=== PATIENT | female | born 1975 | race Caucasian/White ===

== ENCOUNTER 2021-02-22 06:29 | Inpatient (IN) ==
[2021-02-22] MEDS ORDERED: Mag Hydrox/Al Hydrox/Simeth 30 ML UDC PO PRN (10:48)
[2021-02-22] MEDS ORDERED: Ondansetron ODT 4 MG TAB.RAPDIS SL PRN (10:48)
[2021-02-22] MEDS ORDERED: Naloxone 0.4 MG/ML INJ IVP PRN (10:48)
[2021-02-22] MEDS ORDERED: Melatonin 3 MG TABLET PO PRN (10:48)
[2021-02-22] MEDS ORDERED: D5% in Water 1,000 ML IVC PRN (10:54)
[2021-02-22] MEDS ORDERED: *HR* Dextrose 50 % in Water (Vial) 50 ML VIAL IVP PRN (10:54)
[2021-02-22] MEDS ORDERED: Dextrose Gel 15 GM/37.5 ML TUBE PO PRN ×2 (10:54)
[2021-02-22] MEDS: Ipratropium 1 PUFF INHALER IH SCH ×4 (11:23→23:22)
[2021-02-22] MEDS: Furosemide 40 MG/4 ML VIAL IVP SCH (11:30)
[2021-02-22] MEDS: Insulin LISPRO 300 UNITS/3 ML VIAL SUBQ SCH ×3 (11:31→20:57)
[2021-02-22] MEDS ORDERED: Remdesivir 200 MG in 0.9 % Sodium Chloride 100 ML IVPB ONE (12:00)
[2021-02-22] MEDS ORDERED: 0.9 % Sodium Chloride 500 ML ONE (12:25)
[2021-02-22 12:28] LABS: Fibrinogen 521 mg/dL (169-393)
[2021-02-22 12:30] LABS: D-Dimer 1278 ng/mLFEU (0-500)
[2021-02-22 12:42] LABS: Lactate Dehydrogenase 641 Units/L (140-271)
[2021-02-22 12:52] LABS: C-Reactive Protein 59 mg/L (Less than 10)
[2021-02-22 13:00] LABS: Ferritin 249 ng/mL (10-120)
[2021-02-22] MEDS: tiZANidine 4 MG TABLET PO SCH ×2 (14:21→20:56)
[2021-02-22] MEDS: Acetaminophen 325 MG TABLET PO PRN (20:56)
[2021-02-23 02:36] LABS: Basophils % 0.2 %; Hemoglobin 12.4 g/dL (11.5-15.4); Immature Granulocytes % 0.8 % (0-4); Lymphocytes # 0.5 K/mcL (0.6-4.6); Mean Corpuscular Volume 83.9 fL (83.0-100.0); Mean Platelet Volume 10.4 fL (9.4-12.4); Monocytes # 0.3 K/mcL (0.0-1.3); Monocytes % 5.3 %; Neutrophils # 5.2 K/mcL (1.6-8.9); Platelet Count 314 K/mcL (140-400); Red Blood Count 4.77 M/mcL (3.82-4.97); Red Cell Distribution Width 14.4 % (11.5-14.5); Segmented Neutrophils % 85.7 %
[2021-02-23 02:58] LABS: Alanine Aminotransferase 19 Units/L (7-52); Albumin 3.3 g/dL (3.5-5.7); Albumin/Globulin Ratio 1.1 (1.1-2.2); Alkaline Phosphatase 57 Units/L (34-104); Aspartate Amino Transferase 32 Units/L (13-39); BUN/Creatinine Ratio 39 (6-26); Bilirubin,Total 0.3 mg/dL (0.3-1.0); Blood Urea Nitrogen 24 mg/dL (6-20); Calcium 7.6 mg/dL (8.6-10.3); Carbon Dioxide 25 mEq/L (23-29); Chloride 103 mEq/L (98-107); Glucose 312 mg/dL (70-105); Osmolality,Calculated 302 (280-300); Phosphorous 3.9 mg/dL (2.7-4.5); Potassium 4.2 mEq/L (3.5-5.1); Sodium 138 mEq/L (136-145); Total Protein 6.3 g/dL (6.4-8.9); eGFR For African Americans > 60 (> 60); eGFR For Non-African Americans > 60 (> 60)
[2021-02-23] MEDS: Ipratropium 1 PUFF INHALER IH SCH ×5 (04:01→20:15)
[2021-02-23] MEDS ORDERED: *HR* Enoxaparin 40 MG/0.4 ML SYRINGE SQ SCH (06:00)
[2021-02-23] MEDS: Furosemide 40 MG/4 ML VIAL IVP SCH (07:33)
[2021-02-23] MEDS: tiZANidine 4 MG TABLET PO SCH ×3 (07:33→21:09)
[2021-02-23] MEDS: amLODIPine 5 MG TABLET PO SCH (07:34)
[2021-02-23] MEDS: Aspirin Enteric Coated 81 MG Tablet PO SCH (07:34)
[2021-02-23] MEDS: Insulin LISPRO 300 UNITS/3 ML VIAL SUBQ SCH ×4 (07:35→21:03)
[2021-02-23] MEDS: Remdesivir 100 MG in 0.9 % Sodium Chloride 100 ML IVPB SCH (12:59)
[2021-02-23] MEDS ORDERED: Insulin DETEMIR 100 UNIT/ML X5UNITS SUBQ ONE (16:28)
[2021-02-23] MEDS: *HR* Enoxaparin 40 MG/0.4 ML SYRINGE SQ SCH (17:44)
[2021-02-23] MEDS ORDERED: Insulin DETEMIR 100 UNIT/ML X5UNITS SUBQ SCH (21:00)
[2021-02-23] MEDS: Insulin DETEMIR 100 UNIT/ML X5UNITS SUBQ SCH (21:09)
[2021-02-23] MEDS: Acetaminophen 325 MG TABLET PO PRN (21:22)
[2021-02-24] MEDS: Ipratropium 1 PUFF INHALER IH SCH ×7 (00:19→23:43)
[2021-02-24 04:50] LABS: Basophils % 0.1 %; Hematocrit 40.2 % (35.3-44.9); Hemoglobin 12.4 g/dL (11.5-15.4); Immature Granulocytes % 1.1 % (0-4); Lymphocytes # 0.8 K/mcL (0.6-4.6); Lymphocytes % 8.1 %; Mean Corpuscular HGB Conc 30.8 g/dL (31.6-35.5); Mean Corpuscular Hemoglobin 25.9 pg (28.0-33.3); Mean Corpuscular Volume 83.9 fL (83.0-100.0); Mean Platelet Volume 10.5 fL (9.4-12.4); Monocytes # 0.8 K/mcL (0.0-1.3); Monocytes % 7.6 %; Neutrophils # 8.2 K/mcL (1.6-8.9); Platelet Count 346 K/mcL (140-400); Red Blood Count 4.79 M/mcL (3.82-4.97); Red Cell Distribution Width 14.3 % (11.5-14.5); Segmented Neutrophils % 83.1 %
[2021-02-24 05:12] LABS: BUN/Creatinine Ratio 44 (6-26); Blood Urea Nitrogen 24 mg/dL (6-20); Calcium 8.1 mg/dL (8.6-10.3); Carbon Dioxide 27 mEq/L (23-29); Chloride 104 mEq/L (98-107); Glucose 298 mg/dL (70-105); Osmolality,Calculated 303 (280-300); Potassium 4.3 mEq/L (3.5-5.1); Sodium 139 mEq/L (136-145); eGFR For African Americans > 60 (> 60); eGFR For Non-African Americans > 60 (> 60)
[2021-02-24 05:52] LABS: White Blood Count 9.9 K/mcL (4.3-11.1)
[2021-02-24] MEDS: Benzonatate 100 MG CAPSULE PO PRN (05:56)
[2021-02-24] MEDS: *HR* Enoxaparin 40 MG/0.4 ML SYRINGE SQ SCH ×2 (05:57→16:56)
[2021-02-24 06:41] LABS: Platelet Estimate Normal (Normal)
[2021-02-24] MEDS: Furosemide 40 MG/4 ML VIAL IVP SCH (07:33)
[2021-02-24] MEDS: tiZANidine 4 MG TABLET PO SCH ×2 (07:34→20:40)
[2021-02-24] MEDS: Aspirin Enteric Coated 81 MG Tablet PO SCH (07:34)
[2021-02-24] MEDS: Insulin DETEMIR 100 UNIT/ML X5UNITS SUBQ SCH ×2 (07:34→20:40)
[2021-02-24] MEDS: amLODIPine 5 MG TABLET PO SCH (07:34)
[2021-02-24] MEDS: Insulin LISPRO 300 UNITS/3 ML VIAL SUBQ SCH ×5 (07:35→20:41)
[2021-02-24] MEDS: Remdesivir 100 MG in 0.9 % Sodium Chloride 100 ML IVPB SCH (11:13)
[2021-02-24 15:24] LABS: Albumin 3.3 g/dL (3.5-5.7); Albumin/Globulin Ratio 1.1 (1.1-2.2); Bilirubin,Direct 0.1 mg/dL (0.0-0.2); Bilirubin,Indirect 0.3 mg/dL (0.0-1.0); Bilirubin,Total 0.4 mg/dL (0.3-1.0); Globulin 2.9 g/dL (2.4-3.5); Total Protein 6.2 g/dL (6.4-8.9)
[2021-02-24] MEDS ORDERED: Insulin LISPRO 300 UNITS/3 ML VIAL SUBQ SCH (16:30)
[2021-02-25] MEDS: Ipratropium 1 PUFF INHALER IH SCH ×5 (03:52→20:48)
[2021-02-25] MEDS: *HR* Enoxaparin 40 MG/0.4 ML SYRINGE SQ SCH ×2 (06:15→17:16)
[2021-02-25] MEDS: Aspirin Enteric Coated 81 MG Tablet PO SCH (08:10)
[2021-02-25] MEDS: tiZANidine 4 MG TABLET PO SCH ×2 (08:10→20:40)
[2021-02-25] MEDS: amLODIPine 5 MG TABLET PO SCH (08:10)
[2021-02-25] MEDS: Furosemide 40 MG/4 ML VIAL IVP SCH (08:11)
[2021-02-25] MEDS: Insulin LISPRO 300 UNITS/3 ML VIAL SUBQ SCH ×8 (08:12→20:39)
[2021-02-25] MEDS: Insulin DETEMIR 100 UNIT/ML X5UNITS SUBQ SCH ×2 (08:13→20:38)
[2021-02-25 08:56] LABS: Hematocrit 42.1 % (35.3-44.9); Hemoglobin 12.7 g/dL (11.5-15.4); Mean Corpuscular HGB Conc 30.2 g/dL (31.6-35.5); Mean Corpuscular Hemoglobin 25.3 pg (28.0-33.3); Mean Platelet Volume 10.2 fL (9.4-12.4); Platelet Count 353 K/mcL (140-400); Red Blood Count 5.01 M/mcL (3.82-4.97); Red Cell Distribution Width 14.2 % (11.5-14.5); White Blood Count 12.4 K/mcL (4.3-11.1)
[2021-02-25 09:16] LABS: BUN/Creatinine Ratio 39 (6-26); Blood Urea Nitrogen 22 mg/dL (6-20); Calcium 8.3 mg/dL (8.6-10.3); Carbon Dioxide 31 mEq/L (23-29); Chloride 102 mEq/L (98-107); Glucose 209 mg/dL (70-105); Osmolality,Calculated 297 (280-300); Potassium 3.9 mEq/L (3.5-5.1); Sodium 139 mEq/L (136-145); eGFR For African Americans > 60 (> 60); eGFR For Non-African Americans > 60 (> 60)
[2021-02-25 09:18] LABS: Albumin 3.3 g/dL (3.5-5.7); Albumin/Globulin Ratio 1.1 (1.1-2.2); Bilirubin,Direct 0.1 mg/dL (0.0-0.2); Bilirubin,Indirect 0.4 mg/dL (0.0-1.0); Bilirubin,Total 0.5 mg/dL (0.3-1.0); Total Protein 6.3 g/dL (6.4-8.9)
[2021-02-25 09:35] LABS: Lymphocytes # 0.7 K/mcL (0.6-4.6); Neutrophils # 11.7 K/mcL (1.6-8.9); Platelet Estimate Increased (Normal)
[2021-02-25] MEDS ORDERED: Isovue-370 500 ML BOTTLE IVP ONE (10:14)
[2021-02-25] MEDS: Remdesivir 100 MG in 0.9 % Sodium Chloride 100 ML IVPB SCH (12:10)
[2021-02-25] MEDS ORDERED: Furosemide 20 MG/2 ML VIAL IVP ONE (15:43)
[2021-02-25] MEDS ORDERED: *HR* Heparin 5,000 UNIT/ML VIAL IVP PRN ×2 (17:19)
[2021-02-25] MEDS ORDERED: *HR* Heparin 5,000 UNIT/ML VIAL IVP ONE (17:19)
[2021-02-25] MEDS ORDERED: Heparin 25,000UNIT/250ML 1/2NS 25,000 UNIT/250 ML IV.SOLN IVC SCH (17:30)
[2021-02-25] MEDS ORDERED: *HR* Enoxaparin 150 MG/ML SYRINGE SQ SCH (18:00)
[2021-02-25 18:34] LABS: Heparin anti-factor XA UFH 0.14 IU/mL (0.30-0.70)
[2021-02-25 18:35] LABS: INR 1.2
[2021-02-25] MEDS: Acetaminophen 325 MG TABLET PO PRN (18:51)
[2021-02-25] MEDS ORDERED: *HR* Enoxaparin 100 MG/ML SYRINGE SQ ONE (19:00)
[2021-02-26] MEDS: Ipratropium 1 PUFF INHALER IH SCH ×6 (00:22→19:57)
[2021-02-26] MEDS: *HR* Enoxaparin 150 MG/ML SYRINGE SQ SCH ×2 (05:50→17:06)
[2021-02-26 06:35] LABS: Basophils % 0.2 %; Hemoglobin 12.5 g/dL (11.5-15.4); Immature Granulocytes % 1.5 % (0-4); Lymphocytes # 1.3 K/mcL (0.6-4.6); Lymphocytes % 10.4 %; Mean Corpuscular HGB Conc 31.3 g/dL (31.6-35.5); Mean Corpuscular Hemoglobin 26.2 pg (28.0-33.3); Mean Corpuscular Volume 83.9 fL (83.0-100.0); Mean Platelet Volume 10.6 fL (9.4-12.4); Monocytes # 0.8 K/mcL (0.0-1.3); Monocytes % 6.8 %; Platelet Count 299 K/mcL (140-400); Red Blood Count 4.77 M/mcL (3.82-4.97); Segmented Neutrophils % 81.1 %; White Blood Count 12.3 K/mcL (4.3-11.1)
[2021-02-26 06:58] LABS: Alanine Aminotransferase 13 Units/L (7-52); Alkaline Phosphatase 78 Units/L (34-104); Aspartate Amino Transferase 13 Units/L (13-39); BUN/Creatinine Ratio 48 (6-26); Bilirubin,Direct 0.1 mg/dL (0.0-0.2); Bilirubin,Indirect 0.4 mg/dL (0.0-1.0); Bilirubin,Total 0.5 mg/dL (0.3-1.0); Blood Urea Nitrogen 23 mg/dL (6-20); Carbon Dioxide 30 mEq/L (23-29); Chloride 101 mEq/L (98-107); Globulin 2.9 g/dL (2.4-3.5); Glucose 200 mg/dL (70-105); Osmolality,Calculated 295 (280-300); Sodium 138 mEq/L (136-145); Total Protein 5.9 g/dL (6.4-8.9); eGFR For African Americans > 60 (> 60); eGFR For Non-African Americans > 60 (> 60)
[2021-02-26] MEDS: amLODIPine 5 MG TABLET PO SCH (07:43)
[2021-02-26] MEDS: tiZANidine 4 MG TABLET PO SCH ×2 (07:43→21:44)
[2021-02-26] MEDS: Aspirin Enteric Coated 81 MG Tablet PO SCH (07:43)
[2021-02-26] MEDS: Insulin DETEMIR 100 UNIT/ML X5UNITS SUBQ SCH ×2 (07:44→21:44)
[2021-02-26] MEDS: Insulin LISPRO 300 UNITS/3 ML VIAL SUBQ SCH ×7 (07:44→21:43)
[2021-02-26] MEDS: Furosemide 40 MG/4 ML VIAL IVP SCH (07:45)
[2021-02-26 07:47] LABS: Platelet Estimate Normal (Normal)
[2021-02-26] MEDS: Acetaminophen 325 MG TABLET PO PRN (08:51)
[2021-02-26] MEDS: Remdesivir 100 MG in 0.9 % Sodium Chloride 100 ML IVPB SCH (12:25)
[2021-02-27] MEDS: Ipratropium 1 PUFF INHALER IH SCH ×7 (00:14→23:34)
[2021-02-27 05:01] LABS: Basophils % 0.3 %; Eosinophils % 0.1 %; Hematocrit 39.4 % (35.3-44.9); Hemoglobin 12.2 g/dL (11.5-15.4); Immature Granulocytes % 2.3 % (0-4); Lymphocytes # 1.4 K/mcL (0.6-4.6); Lymphocytes % 9.1 %; Mean Corpuscular Hemoglobin 25.8 pg (28.0-33.3); Mean Corpuscular Volume 83.5 fL (83.0-100.0); Mean Platelet Volume 10.5 fL (9.4-12.4); Monocytes # 0.9 K/mcL (0.0-1.3); Monocytes % 5.8 %; Neutrophils # 12.7 K/mcL (1.6-8.9); Platelet Count 314 K/mcL (140-400); Red Blood Count 4.72 M/mcL (3.82-4.97); Red Cell Distribution Width 13.8 % (11.5-14.5); Segmented Neutrophils % 82.4 %; White Blood Count 15.4 K/mcL (4.3-11.1)
[2021-02-27 05:10] LABS: BUN/Creatinine Ratio 45 (6-26); Blood Urea Nitrogen 21 mg/dL (6-20); Calcium 8.1 mg/dL (8.6-10.3); Carbon Dioxide 30 mEq/L (23-29); Chloride 100 mEq/L (98-107); Glucose 166 mg/dL (70-105); Osmolality,Calculated 289 (280-300); Potassium 4.2 mEq/L (3.5-5.1); Sodium 136 mEq/L (136-145); eGFR For African Americans > 60 (> 60); eGFR For Non-African Americans > 60 (> 60)
[2021-02-27] MEDS: *HR* Enoxaparin 150 MG/ML SYRINGE SQ SCH ×2 (05:25→18:45)
[2021-02-27] MEDS: Insulin LISPRO 300 UNITS/3 ML VIAL SUBQ SCH ×7 (07:17→19:54)
[2021-02-27] MEDS: Aspirin Enteric Coated 81 MG Tablet PO SCH (07:57)
[2021-02-27] MEDS: tiZANidine 4 MG TABLET PO SCH ×2 (07:57→20:02)
[2021-02-27] MEDS: Insulin DETEMIR 100 UNIT/ML X5UNITS SUBQ SCH ×2 (07:58→20:00)
[2021-02-27] MEDS: Furosemide 40 MG/4 ML VIAL IVP SCH (07:58)
[2021-02-27] MEDS: amLODIPine 5 MG TABLET PO SCH (07:58)
[2021-02-27] MEDS: Acetaminophen 325 MG TABLET PO PRN ×2 (09:43→20:02)
[2021-02-28] MEDS: Ipratropium 1 PUFF INHALER IH SCH ×6 (04:20→23:33)
[2021-02-28] MEDS: *HR* Enoxaparin 150 MG/ML SYRINGE SQ SCH ×2 (05:05→16:57)
[2021-02-28 06:04] LABS: Basophils % 0.3 %; Eosinophils # 0.1 K/mcL (0.0-0.6); Eosinophils % 0.6 %; Immature Granulocytes % 2.2 % (0-4); Lymphocytes # 1.3 K/mcL (0.6-4.6); Lymphocytes % 9.3 %; Mean Corpuscular HGB Conc 31.6 g/dL (31.6-35.5); Mean Corpuscular Hemoglobin 26.2 pg (28.0-33.3); Mean Platelet Volume 10.6 fL (9.4-12.4); Monocytes # 0.6 K/mcL (0.0-1.3); Monocytes % 4.5 %; Neutrophils # 11.6 K/mcL (1.6-8.9); Platelet Count 291 K/mcL (140-400); Red Blood Count 4.58 M/mcL (3.82-4.97); Red Cell Distribution Width 13.8 % (11.5-14.5); Segmented Neutrophils % 83.1 %; White Blood Count 13.9 K/mcL (4.3-11.1)
[2021-02-28 06:25] LABS: BUN/Creatinine Ratio 47 (6-26); Blood Urea Nitrogen 20 mg/dL (6-20); Carbon Dioxide 29 mEq/L (23-29); Chloride 99 mEq/L (98-107); Glucose 163 mg/dL (70-105); Osmolality,Calculated 286 (280-300); Potassium 3.7 mEq/L (3.5-5.1); Sodium 135 mEq/L (136-145); eGFR For African Americans > 60 (> 60); eGFR For Non-African Americans > 60 (> 60)
[2021-02-28] MEDS: amLODIPine 5 MG TABLET PO SCH (08:07)
[2021-02-28] MEDS: Acetaminophen 325 MG TABLET PO PRN ×3 (08:07→20:27)
[2021-02-28] MEDS: Aspirin Enteric Coated 81 MG Tablet PO SCH (08:07)
[2021-02-28] MEDS: tiZANidine 4 MG TABLET PO SCH ×2 (08:07→20:28)
[2021-02-28] MEDS: Furosemide 40 MG/4 ML VIAL IVP SCH (08:08)
[2021-02-28] MEDS: Insulin DETEMIR 100 UNIT/ML X5UNITS SUBQ SCH ×2 (08:09→20:27)
[2021-02-28] MEDS: Insulin LISPRO 300 UNITS/3 ML VIAL SUBQ SCH ×7 (08:10→20:27)
[2021-02-28] MEDS: Benzonatate 100 MG CAPSULE PO PRN ×2 (13:38→20:28)
[2021-03-01] MEDS: Ipratropium 1 PUFF INHALER IH SCH ×6 (04:01→23:03)
[2021-03-01] MEDS: *HR* Enoxaparin 150 MG/ML SYRINGE SQ SCH ×2 (05:08→17:17)
[2021-03-01 06:54] LABS: Basophils % 0.1 %; Eosinophils # 0.2 K/mcL (0.0-0.6); Eosinophils % 1.3 %; Hematocrit 39.3 % (35.3-44.9); Hemoglobin 12.2 g/dL (11.5-15.4); Immature Granulocytes % 1.7 % (0-4); Lymphocytes # 1.1 K/mcL (0.6-4.6); Lymphocytes % 7.5 %; Mean Corpuscular Hemoglobin 26.1 pg (28.0-33.3); Mean Platelet Volume 10.8 fL (9.4-12.4); Monocytes # 0.7 K/mcL (0.0-1.3); Neutrophils # 11.9 K/mcL (1.6-8.9); Platelet Count 299 K/mcL (140-400); Red Blood Count 4.68 M/mcL (3.82-4.97); Red Cell Distribution Width 13.9 % (11.5-14.5); Segmented Neutrophils % 84.4 %; White Blood Count 14.1 K/mcL (4.3-11.1)
[2021-03-01 07:12] LABS: BUN/Creatinine Ratio 36 (6-26); Blood Urea Nitrogen 16 mg/dL (6-20); Calcium 8.2 mg/dL (8.6-10.3); Carbon Dioxide 29 mEq/L (23-29); Chloride 98 mEq/L (98-107); Glucose 130 mg/dL (70-105); Osmolality,Calculated 283 (280-300); Potassium 3.7 mEq/L (3.5-5.1); Sodium 135 mEq/L (136-145); eGFR For African Americans > 60 (> 60); eGFR For Non-African Americans > 60 (> 60)
[2021-03-01] MEDS: Insulin LISPRO 300 UNITS/3 ML VIAL SUBQ SCH ×7 (08:31→21:18)
[2021-03-01] MEDS: tiZANidine 4 MG TABLET PO SCH ×2 (08:44→21:19)
[2021-03-01] MEDS: amLODIPine 5 MG TABLET PO SCH (08:44)
[2021-03-01] MEDS: Acetaminophen 325 MG TABLET PO PRN ×2 (08:44→21:19)
[2021-03-01] MEDS: Aspirin Enteric Coated 81 MG Tablet PO SCH (08:44)
[2021-03-01] MEDS: Benzonatate 100 MG CAPSULE PO PRN ×2 (08:44→21:19)
[2021-03-01] MEDS: Furosemide 40 MG/4 ML VIAL IVP SCH (08:45)
[2021-03-01] MEDS: Insulin DETEMIR 100 UNIT/ML X5UNITS SUBQ SCH ×2 (08:51→21:25)
[2021-03-02] MEDS: Ipratropium 1 PUFF INHALER IH SCH ×6 (03:45→23:04)
[2021-03-02] MEDS: *HR* Enoxaparin 150 MG/ML SYRINGE SQ SCH ×2 (04:59→17:54)
[2021-03-02 06:34] LABS: Basophils % 0.2 %; Eosinophils # 0.2 K/mcL (0.0-0.6); Eosinophils % 1.6 %; Hematocrit 38.2 % (35.3-44.9); Hemoglobin 11.9 g/dL (11.5-15.4); Immature Granulocytes % 1.8 % (0-4); Lymphocytes # 1.1 K/mcL (0.6-4.6); Lymphocytes % 7.8 %; Mean Corpuscular HGB Conc 31.2 g/dL (31.6-35.5); Mean Corpuscular Hemoglobin 26.5 pg (28.0-33.3); Mean Corpuscular Volume 85.1 fL (83.0-100.0); Mean Platelet Volume 10.8 fL (9.4-12.4); Monocytes # 0.6 K/mcL (0.0-1.3); Monocytes % 4.8 %; Neutrophils # 11.3 K/mcL (1.6-8.9); Platelet Count 265 K/mcL (140-400); Red Blood Count 4.49 M/mcL (3.82-4.97); Red Cell Distribution Width 13.8 % (11.5-14.5); Segmented Neutrophils % 83.8 %; White Blood Count 13.5 K/mcL (4.3-11.1)
[2021-03-02 06:53] LABS: BUN/Creatinine Ratio 31 (6-26); Blood Urea Nitrogen 14 mg/dL (6-20); Carbon Dioxide 30 mEq/L (23-29); Chloride 99 mEq/L (98-107); Glucose 100 mg/dL (70-105); Osmolality,Calculated 281 (280-300); Sodium 135 mEq/L (136-145); eGFR For African Americans > 60 (> 60); eGFR For Non-African Americans > 60 (> 60)
[2021-03-02] MEDS: Insulin LISPRO 300 UNITS/3 ML VIAL SUBQ SCH ×7 (07:35→21:23)
[2021-03-02] MEDS: Furosemide 40 MG/4 ML VIAL IVP SCH (07:48)
[2021-03-02] MEDS: Benzonatate 100 MG CAPSULE PO PRN (07:50)
[2021-03-02] MEDS: amLODIPine 5 MG TABLET PO SCH (07:50)
[2021-03-02] MEDS: Aspirin Enteric Coated 81 MG Tablet PO SCH (07:50)
[2021-03-02] MEDS: tiZANidine 4 MG TABLET PO SCH ×2 (07:50→21:10)
[2021-03-02] MEDS: Insulin DETEMIR 100 UNIT/ML X5UNITS SUBQ SCH ×2 (07:56→21:05)
[2021-03-02] MEDS: Acetaminophen 325 MG TABLET PO PRN (21:24)
[2021-03-03 02:02] LABS: Basophils % 0.2 %; Eosinophils # 0.1 K/mcL (0.0-0.6); Eosinophils % 0.7 %; Hematocrit 35.7 % (35.3-44.9); Hemoglobin 11.2 g/dL (11.5-15.4); Immature Granulocytes % 2.1 % (0-4); Lymphocytes # 1.1 K/mcL (0.6-4.6); Lymphocytes % 6.7 %; Mean Corpuscular HGB Conc 31.4 g/dL (31.6-35.5); Mean Corpuscular Hemoglobin 25.9 pg (28.0-33.3); Mean Corpuscular Volume 82.4 fL (83.0-100.0); Mean Platelet Volume 11.1 fL (9.4-12.4); Monocytes # 0.8 K/mcL (0.0-1.3); Monocytes % 4.9 %; Neutrophils # 13.7 K/mcL (1.6-8.9); Platelet Count 303 K/mcL (140-400); Red Blood Count 4.33 M/mcL (3.82-4.97); Red Cell Distribution Width 13.9 % (11.5-14.5); Segmented Neutrophils % 85.4 %; White Blood Count 16.1 K/mcL (4.3-11.1)
[2021-03-03 02:21] LABS: BUN/Creatinine Ratio 35 (6-26); Blood Urea Nitrogen 15 mg/dL (6-20); Calcium 8.1 mg/dL (8.6-10.3); Carbon Dioxide 29 mEq/L (23-29); Chloride 99 mEq/L (98-107); Glucose 175 mg/dL (70-105); Osmolality,Calculated 285 (280-300); Sodium 135 mEq/L (136-145); eGFR For African Americans > 60 (> 60); eGFR For Non-African Americans > 60 (> 60)
[2021-03-03] MEDS: Ipratropium 1 PUFF INHALER IH SCH ×6 (03:58→22:58)
[2021-03-03] MEDS: *HR* Enoxaparin 150 MG/ML SYRINGE SQ SCH ×2 (04:46→18:24)
[2021-03-03] MEDS: tiZANidine 4 MG TABLET PO SCH ×2 (08:03→21:28)
[2021-03-03] MEDS: amLODIPine 5 MG TABLET PO SCH (08:04)
[2021-03-03] MEDS: Aspirin Enteric Coated 81 MG Tablet PO SCH (08:04)
[2021-03-03] MEDS: Furosemide 40 MG/4 ML VIAL IVP SCH (08:05)
[2021-03-03] MEDS: Insulin DETEMIR 100 UNIT/ML X5UNITS SUBQ SCH ×2 (08:06→21:28)
[2021-03-03] MEDS: Insulin LISPRO 300 UNITS/3 ML VIAL SUBQ SCH ×7 (08:40→21:25)
[2021-03-03] MEDS: Benzonatate 100 MG CAPSULE PO PRN ×2 (10:43→21:27)
[2021-03-03] MEDS: Acetaminophen 325 MG TABLET PO PRN ×3 (10:43→21:26)
[2021-03-03] MEDS ORDERED: Hydrocortisone Lotion 59 ML BOTTLE TP PRN (23:22)
[2021-03-04 01:29] LABS: Basophils % 0.2 %; Eosinophils # 0.1 K/mcL (0.0-0.6); Eosinophils % 0.6 %; Hematocrit 36.4 % (35.3-44.9); Hemoglobin 11.3 g/dL (11.5-15.4); Immature Granulocytes % 1.5 % (0-4); Lymphocytes # 1.3 K/mcL (0.6-4.6); Lymphocytes % 7.4 %; Mean Corpuscular Hemoglobin 26.2 pg (28.0-33.3); Mean Corpuscular Volume 84.5 fL (83.0-100.0); Monocytes # 0.8 K/mcL (0.0-1.3); Monocytes % 4.5 %; Platelet Count 331 K/mcL (140-400); Red Blood Count 4.31 M/mcL (3.82-4.97); Red Cell Distribution Width 13.7 % (11.5-14.5); Segmented Neutrophils % 85.8 %; White Blood Count 17.5 K/mcL (4.3-11.1)
[2021-03-04 01:49] LABS: BUN/Creatinine Ratio 30 (6-26); Blood Urea Nitrogen 14 mg/dL (6-20); Calcium 8.3 mg/dL (8.6-10.3); Carbon Dioxide 27 mEq/L (23-29); Chloride 97 mEq/L (98-107); Glucose 226 mg/dL (70-105); Osmolality,Calculated 284 (280-300); Potassium 4.2 mEq/L (3.5-5.1); Sodium 133 mEq/L (136-145); eGFR For African Americans > 60 (> 60); eGFR For Non-African Americans > 60 (> 60)
[2021-03-04] MEDS: Ipratropium 1 PUFF INHALER IH SCH ×6 (03:52→23:33)
[2021-03-04] MEDS: *HR* Enoxaparin 150 MG/ML SYRINGE SQ SCH ×2 (05:05→17:07)
[2021-03-04] MEDS: Insulin LISPRO 300 UNITS/3 ML VIAL SUBQ SCH ×7 (07:35→20:54)
[2021-03-04] MEDS: tiZANidine 4 MG TABLET PO SCH ×2 (07:37→20:42)
[2021-03-04] MEDS: amLODIPine 5 MG TABLET PO SCH (07:38)
[2021-03-04] MEDS: Aspirin Enteric Coated 81 MG Tablet PO SCH (07:39)
[2021-03-04] MEDS: Insulin DETEMIR 100 UNIT/ML X5UNITS SUBQ SCH ×2 (07:41→20:42)
[2021-03-04] MEDS: Furosemide 40 MG/4 ML VIAL IVP SCH (07:41)
[2021-03-04] MEDS: Acetaminophen 325 MG TABLET PO PRN (15:21)
[2021-03-05] MEDS: Ipratropium 1 PUFF INHALER IH SCH ×6 (04:05→23:33)
[2021-03-05] MEDS: *HR* Enoxaparin 150 MG/ML SYRINGE SQ SCH ×2 (06:18→17:21)
[2021-03-05 06:28] LABS: Basophils % 0.2 %; Eosinophils # 0.1 K/mcL (0.0-0.6); Eosinophils % 0.8 %; Hematocrit 35.6 % (35.3-44.9); Lymphocytes % 11.6 %; Mean Corpuscular HGB Conc 30.9 g/dL (31.6-35.5); Mean Corpuscular Hemoglobin 25.8 pg (28.0-33.3); Mean Corpuscular Volume 83.4 fL (83.0-100.0); Mean Platelet Volume 11.2 fL (9.4-12.4); Monocytes # 1.1 K/mcL (0.0-1.3); Monocytes % 6.2 %; Neutrophils # 13.5 K/mcL (1.6-8.9); Platelet Count 296 K/mcL (140-400); Red Blood Count 4.27 M/mcL (3.82-4.97); Red Cell Distribution Width 14.2 % (11.5-14.5); Segmented Neutrophils % 79.2 %; White Blood Count 17.1 K/mcL (4.3-11.1)
[2021-03-05 06:44] LABS: BUN/Creatinine Ratio 37 (6-26); Blood Urea Nitrogen 16 mg/dL (6-20); Calcium 8.3 mg/dL (8.6-10.3); Carbon Dioxide 32 mEq/L (23-29); Chloride 99 mEq/L (98-107); Glucose 155 mg/dL (70-105); Osmolality,Calculated 284 (280-300); Potassium 4.1 mEq/L (3.5-5.1); Sodium 135 mEq/L (136-145); eGFR For African Americans > 60 (> 60); eGFR For Non-African Americans > 60 (> 60)
[2021-03-05] MEDS: Insulin LISPRO 300 UNITS/3 ML VIAL SUBQ SCH ×7 (09:12→20:24)
[2021-03-05] MEDS: Furosemide 40 MG/4 ML VIAL IVP SCH (09:13)
[2021-03-05] MEDS: tiZANidine 4 MG TABLET PO SCH ×2 (09:13→20:38)
[2021-03-05] MEDS: Insulin DETEMIR 100 UNIT/ML X5UNITS SUBQ SCH ×2 (09:14→20:24)
[2021-03-05] MEDS: Aspirin Enteric Coated 81 MG Tablet PO SCH (09:14)
[2021-03-05] MEDS: amLODIPine 5 MG TABLET PO SCH (09:14)
[2021-03-05] MEDS: Acetaminophen 325 MG TABLET PO PRN ×2 (12:04→20:37)
[2021-03-05] MEDS: Benzonatate 100 MG CAPSULE PO PRN (20:37)
[2021-03-06] MEDS: Ipratropium 1 PUFF INHALER IH SCH ×6 (04:32→23:28)
[2021-03-06] MEDS: *HR* Enoxaparin 150 MG/ML SYRINGE SQ SCH ×2 (06:07→16:57)
[2021-03-06 07:17] LABS: Hematocrit 35.1 % (35.3-44.9); Hemoglobin 10.5 g/dL (11.5-15.4); Mean Corpuscular HGB Conc 29.9 g/dL (31.6-35.5); Mean Corpuscular Hemoglobin 26.1 pg (28.0-33.3); Mean Corpuscular Volume 87.1 fL (83.0-100.0); Mean Platelet Volume 12.2 fL (9.4-12.4); Platelet Count 151 K/mcL (140-400); Red Blood Count 4.03 M/mcL (3.82-4.97); Red Cell Distribution Width 14.7 % (11.5-14.5); White Blood Count 12.9 K/mcL (4.3-11.1)
[2021-03-06 08:18] LABS: BUN/Creatinine Ratio 38 (6-26); Blood Urea Nitrogen 15 mg/dL (6-20); Calcium 7.7 mg/dL (8.6-10.3); Carbon Dioxide 24 mEq/L (23-29); Chloride 105 mEq/L (98-107); Glucose 82 mg/dL (70-105); Osmolality,Calculated 284 (280-300); Potassium 4.7 mEq/L (3.5-5.1); Sodium 137 mEq/L (136-145); eGFR For African Americans > 60 (> 60); eGFR For Non-African Americans > 60 (> 60)
[2021-03-06] MEDS: Insulin DETEMIR 100 UNIT/ML X5UNITS SUBQ SCH ×2 (08:27→22:08)
[2021-03-06] MEDS: amLODIPine 5 MG TABLET PO SCH (08:27)
[2021-03-06] MEDS: tiZANidine 4 MG TABLET PO SCH ×2 (08:27→22:08)
[2021-03-06] MEDS: Aspirin Enteric Coated 81 MG Tablet PO SCH (08:27)
[2021-03-06] MEDS: Insulin LISPRO 300 UNITS/3 ML VIAL SUBQ SCH ×7 (08:29→22:07)
[2021-03-06] MEDS: Furosemide 40 MG/4 ML VIAL IVP SCH (09:45)
[2021-03-06] MEDS ORDERED: Furosemide 20 MG/2 ML VIAL IVP ONE (17:00)
[2021-03-06] MEDS: Benzonatate 100 MG CAPSULE PO PRN ×2 (17:09→23:08)
[2021-03-06] MEDS: Acetaminophen 325 MG TABLET PO PRN (17:10)
[2021-03-07 03:10] LABS: Basophils % 0.2 %; Eosinophils % 0.2 %; Hematocrit 32.9 % (35.3-44.9); Hemoglobin 10.2 g/dL (11.5-15.4); Immature Granulocytes % 1.2 % (0-4); Lymphocytes # 1.5 K/mcL (0.6-4.6); Lymphocytes % 8.2 %; Mean Corpuscular Volume 83.9 fL (83.0-100.0); Mean Platelet Volume 10.8 fL (9.4-12.4); Monocytes % 5.3 %; Neutrophils # 15.7 K/mcL (1.6-8.9); Platelet Count 296 K/mcL (140-400); Red Blood Count 3.92 M/mcL (3.82-4.97); Red Cell Distribution Width 14.6 % (11.5-14.5); Segmented Neutrophils % 84.9 %; White Blood Count 18.5 K/mcL (4.3-11.1)
[2021-03-07 03:31] LABS: Alanine Aminotransferase 12 Units/L (7-52); Albumin 2.7 g/dL (3.5-5.7); Albumin/Globulin Ratio 0.9 (1.1-2.2); Alkaline Phosphatase 53 Units/L (34-104); Aspartate Amino Transferase 8 Units/L (13-39); BUN/Creatinine Ratio 30 (6-26); Bilirubin,Total 0.3 mg/dL (0.3-1.0); Blood Urea Nitrogen 14 mg/dL (6-20); Calcium 8.3 mg/dL (8.6-10.3); Carbon Dioxide 28 mEq/L (23-29); Chloride 101 mEq/L (98-107); Globulin 2.9 g/dL (2.4-3.5); Glucose 280 mg/dL (70-105); Lactate Dehydrogenase 319 Units/L (140-271); Osmolality,Calculated 291 (280-300); Potassium 4.2 mEq/L (3.5-5.1); Sodium 135 mEq/L (136-145); Total Protein 5.6 g/dL (6.4-8.9); eGFR For African Americans > 60 (> 60); eGFR For Non-African Americans > 60 (> 60)
[2021-03-07 03:49] LABS: Ferritin 93 ng/mL (10-120)
[2021-03-07] MEDS: Ipratropium 1 PUFF INHALER IH SCH ×5 (04:01→20:17)
[2021-03-07] MEDS: *HR* Enoxaparin 150 MG/ML SYRINGE SQ SCH ×2 (05:07→17:18)
[2021-03-07] MEDS: Aspirin Enteric Coated 81 MG Tablet PO SCH (09:51)
[2021-03-07] MEDS: tiZANidine 4 MG TABLET PO SCH ×2 (09:52→20:24)
[2021-03-07] MEDS: amLODIPine 5 MG TABLET PO SCH (09:52)
[2021-03-07] MEDS: Furosemide 40 MG/4 ML VIAL IVP SCH (09:53)
[2021-03-07] MEDS: Insulin DETEMIR 100 UNIT/ML X5UNITS SUBQ SCH ×2 (09:54→20:24)
[2021-03-07] MEDS: Insulin LISPRO 300 UNITS/3 ML VIAL SUBQ SCH ×7 (09:54→20:23)
[2021-03-07] MEDS: Acetaminophen 325 MG TABLET PO PRN (10:10)
[2021-03-08] MEDS: Ipratropium 1 PUFF INHALER IH SCH ×7 (00:26→23:50)
[2021-03-08] MEDS: *HR* Enoxaparin 150 MG/ML SYRINGE SQ SCH ×2 (06:54→17:02)
[2021-03-08 07:30] LABS: Basophils # 0.1 K/mcL (0.0-0.2); Basophils % 0.2 %; Eosinophils # 0.2 K/mcL (0.0-0.6); Eosinophils % 0.8 %; Hematocrit 34.9 % (35.3-44.9); Hemoglobin 10.7 g/dL (11.5-15.4); Immature Granulocytes % 1.2 % (0-4); Lymphocytes # 2.1 K/mcL (0.6-4.6); Lymphocytes % 9.6 %; Mean Corpuscular HGB Conc 30.7 g/dL (31.6-35.5); Mean Corpuscular Volume 84.7 fL (83.0-100.0); Mean Platelet Volume 10.8 fL (9.4-12.4); Monocytes # 1.2 K/mcL (0.0-1.3); Monocytes % 5.5 %; Neutrophils # 17.7 K/mcL (1.6-8.9); Platelet Count 305 K/mcL (140-400); Red Blood Count 4.12 M/mcL (3.82-4.97); Red Cell Distribution Width 14.8 % (11.5-14.5); Segmented Neutrophils % 82.7 %; White Blood Count 21.5 K/mcL (4.3-11.1)
[2021-03-08 07:44] LABS: Alanine Aminotransferase 12 Units/L (7-52); Albumin 2.8 g/dL (3.5-5.7); Albumin/Globulin Ratio 0.9 (1.1-2.2); Alkaline Phosphatase 52 Units/L (34-104); Aspartate Amino Transferase 9 Units/L (13-39); BUN/Creatinine Ratio 36 (6-26); Bilirubin,Total 0.4 mg/dL (0.3-1.0); Blood Urea Nitrogen 14 mg/dL (6-20); Calcium 8.5 mg/dL (8.6-10.3); Carbon Dioxide 30 mEq/L (23-29); Chloride 102 mEq/L (98-107); Globulin 3.1 g/dL (2.4-3.5); Glucose 137 mg/dL (70-105); Osmolality,Calculated 291 (280-300); Potassium 4.3 mEq/L (3.5-5.1); Sodium 139 mEq/L (136-145); Total Protein 5.9 g/dL (6.4-8.9); eGFR For African Americans > 60 (> 60); eGFR For Non-African Americans > 60 (> 60)
[2021-03-08] MEDS: Furosemide 40 MG/4 ML VIAL IVP SCH (09:29)
[2021-03-08] MEDS: Aspirin Enteric Coated 81 MG Tablet PO SCH (09:31)
[2021-03-08] MEDS: tiZANidine 4 MG TABLET PO SCH ×2 (09:31→22:59)
[2021-03-08] MEDS: hydrOXYzine pamoate 25 MG CAPSULE PO PRN ×2 (09:32→19:03)
[2021-03-08] MEDS: amLODIPine 5 MG TABLET PO SCH (09:32)
[2021-03-08] MEDS: Insulin LISPRO 300 UNITS/3 ML VIAL SUBQ SCH ×7 (09:33→21:35)
[2021-03-08] MEDS: Insulin DETEMIR 100 UNIT/ML X5UNITS SUBQ SCH ×2 (09:34→21:35)
[2021-03-08] MEDS: Acetaminophen 325 MG TABLET PO PRN (14:09)
[2021-03-08 22:31] LABS: ABG Base Excess 4 mEq/L (-2 to 3); ABG HCO3 29 mEq/L (21-27); ABG Oxygen Saturation 90 % (95-98); ABG PCO2 47 mmHg (35-45); ABG PO2 59 mmHg (85-104); ABG TCO2 31 mEq/L (20-26); Blood Gas Modality AVAPS; Blood Gas VT 500 cc
[2021-03-08] MEDS ORDERED: Furosemide 40 MG/4 ML VIAL IVP ONE (22:57)
[2021-03-08] MEDS ORDERED: *HR* LORazepam 2 MG/ML VIAL IVP ONE (23:10)
[2021-03-09] MEDS ORDERED: Dexmedetomidine HCl 400 MCG/100 ML MLS IVC SCH (01:15)
[2021-03-09 01:41] LABS: Basophils % 0.1 %; Eosinophils # 0.1 K/mcL (0.0-0.6); Eosinophils % 0.2 %; Hematocrit 36.1 % (35.3-44.9); Hemoglobin 10.9 g/dL (11.5-15.4); Lymphocytes # 1.7 K/mcL (0.6-4.6); Lymphocytes % 6.8 %; Mean Corpuscular HGB Conc 30.2 g/dL (31.6-35.5); Mean Corpuscular Hemoglobin 25.5 pg (28.0-33.3); Mean Corpuscular Volume 84.5 fL (83.0-100.0); Mean Platelet Volume 10.9 fL (9.4-12.4); Monocytes # 1.4 K/mcL (0.0-1.3); Monocytes % 5.7 %; Platelet Count 330 K/mcL (140-400); Red Blood Count 4.27 M/mcL (3.82-4.97); Segmented Neutrophils % 86.2 %; White Blood Count 24.4 K/mcL (4.3-11.1)
[2021-03-09 02:00] LABS: BUN/Creatinine Ratio 35 (6-26); Blood Urea Nitrogen 19 mg/dL (6-20); Calcium 8.8 mg/dL (8.6-10.3); Carbon Dioxide 31 mEq/L (23-29); Chloride 99 mEq/L (98-107); Glucose 197 mg/dL (70-105); Osmolality,Calculated 292 (280-300); Potassium 4.1 mEq/L (3.5-5.1); Sodium 137 mEq/L (136-145); eGFR For African Americans > 60 (> 60); eGFR For Non-African Americans > 60 (> 60)
[2021-03-09] MEDS: Ipratropium 1 PUFF INHALER IH SCH ×6 (03:18→23:58)
[2021-03-09] MEDS ORDERED: Furosemide 40 MG/4 ML VIAL IVP ONE (03:25)
[2021-03-09 03:45] LABS: ABG Base Excess 4 mEq/L (-2 to 3); ABG HCO3 28 mEq/L (21-27); ABG Oxygen Saturation 89 % (95-98); ABG PCO2 41 mmHg (35-45); ABG PH 7.44 pH Units (7.32-7.45); ABG PO2 55 mmHg (85-104); ABG TCO2 29 mEq/L (20-26)
[2021-03-09] MEDS ORDERED: Artificial Tears SOLN 15 ML BOTTLE BOTH EYES PRN ×2 (05:08→10:25)
[2021-03-09] MEDS: Midazolam HCl 50 MG/100 ML IV.SOLN IVC SCH ×2 (05:42→20:28)
[2021-03-09] MEDS: Cisatracurium 200 MG in 0.9 % Sodium Chloride 180 ML IVC SCH ×4 (05:43→19:39)
[2021-03-09] MEDS: FentaNYL (PF) 1,000 MCG/100 ML IV.SOLN IVC SCH ×5 (05:44→23:14)
[2021-03-09] MEDS: Norepinephrine 4 MG/254 ML IV.SOLN IVC SCH ×2 (05:44→17:35)
[2021-03-09 06:04] LABS: ABG Base Excess 4 mEq/L (-2 to 3); ABG HCO3 34 mEq/L (21-27); ABG Oxygen Saturation 94 % (95-98); ABG PCO2 80 mmHg (35-45); ABG PH 7.24 pH Units (7.32-7.45); ABG PO2 89 mmHg (85-104); ABG TCO2 37 mEq/L (20-26); Blood Gas VT 480 cc
[2021-03-09] MEDS: *HR* Enoxaparin 150 MG/ML SYRINGE SQ SCH (06:14)
[2021-03-09] MEDS ORDERED: *HR* Heparin 5,000 UNIT/ML VIAL IVP PRN ×2 (07:33)
[2021-03-09] MEDS ORDERED: Artificial Tears SOLN 15 ML BOTTLE BOTH EYES SCH (08:00)
[2021-03-09] MEDS: tiZANidine 4 MG TABLET PO SCH (08:31)
[2021-03-09] MEDS: Aspirin Enteric Coated 81 MG Tablet PO SCH (08:42)
[2021-03-09] MEDS: Furosemide 40 MG/4 ML VIAL IVP SCH (08:42)
[2021-03-09] MEDS: Pantoprazole 40 MG VIAL IVP SCH (08:42)
[2021-03-09] MEDS: amLODIPine 5 MG TABLET PO SCH (08:42)
[2021-03-09] MEDS ORDERED: Chlorhexidine Rinse 15 ML MOUTHWASH MM SCH (09:00)
[2021-03-09 09:41] LABS: Heparin anti-factor XA UFH 0.42 IU/mL (0.30-0.70); INR 1.2
[2021-03-09] MEDS: Insulin DETEMIR 100 UNIT/ML X5UNITS SUBQ SCH ×2 (09:44→19:55)
[2021-03-09 09:48] LABS: Albumin 2.9 g/dL (3.5-5.7); Albumin/Globulin Ratio 0.9 (1.1-2.2); Bilirubin,Direct 0.1 mg/dL (0.0-0.2); Bilirubin,Indirect 0.3 mg/dL (0.0-1.0); Bilirubin,Total 0.4 mg/dL (0.3-1.0); Globulin 3.2 g/dL (2.4-3.5); Total Protein 6.1 g/dL (6.4-8.9)
[2021-03-09] MEDS: Heparin 25,000UNIT/250ML 1/2NS 25,000 UNIT/250 ML IV.SOLN IVC SCH ×2 (09:51→20:28)
[2021-03-09] MEDS ORDERED: *HR* Succinylcholine 200 MG/10 ML VIAL IVP ONE (09:57)
[2021-03-09] MEDS ORDERED: *HR* Midazolam HCl 5 MG/5 ML VIAL IVP ONE (09:57)
[2021-03-09] MEDS ORDERED: *HR* Propofol 200 MG/20 ML VIAL IVP ONE (09:57)
[2021-03-09] MEDS ORDERED: *HR* Midazolam HCl 2 MG/2 ML VIAL IVP ONE (09:57)
[2021-03-09] MEDS: Artificial Tears SOLN 15 ML BOTTLE BOTH EYES SCH ×4 (12:50→23:14)
[2021-03-09 13:25] LABS: Bacteria,Urine Few per hpf (None-Few); Bilirubin,Urine Negative (Negative); Blood,Urine Small (Negative); Clarity,Urine Clear (Clear); Color,Urine Yellow (Yellow); Glucose,Urine (UA) Normal (Normal); Hyaline Casts,Urine Many per lpf (None Seen); Ketones,Urine Negative (Negative); Leukocyte Esterase,Urine Small (Negative); Mucus,Urine Few per lpf (None-Few); Nitrite,Urine Negative (Negative); PH,Urine 5.5 pH Units (5.0-8.0); Protein,Urine 30 mg/dL (Neg-Trace); Specific Gravity,Urine 1.026 (1.010-1.025); Squamous Epithelial Cell,Urine Few per hpf (None-Few); Urobilinogen,Urine Normal (Normal)
[2021-03-09] MEDS: Ketoconazole 2% CRM 15 GM TUBE TP SCH ×2 (14:34→23:33)
[2021-03-09] MEDS: Insulin LISPRO 300 UNITS/3 ML VIAL SUBQ SCH ×3 (16:35→20:22)
[2021-03-09] MEDS: Nystatin POWDER 30 GM BOTTLE TP SCH (16:36)
[2021-03-09] MEDS: Doxycycline 100 MG in 0.9 % Sodium Chloride Mini Bag 100 ML IVPB SCH (16:59)
[2021-03-09] MEDS: Piperacillin/Tazobactam 3.375 GM in 0.9 % Sodium Chloride Mini Bag 100 ML IVPB SCH ×2 (16:59→23:14)
[2021-03-09] MEDS: Chlorhexidine Rinse 15 ML MOUTHWASH MM SCH (19:53)
[2021-03-10] MEDS: Cisatracurium 200 MG in 0.9 % Sodium Chloride 180 ML IVC SCH ×5 (00:36→20:03)
[2021-03-10] MEDS: Insulin LISPRO 300 UNITS/3 ML VIAL SUBQ SCH ×6 (00:36→20:42)
[2021-03-10] MEDS: FentaNYL (PF) 1,000 MCG/100 ML IV.SOLN IVC SCH ×4 (03:29→20:03)
[2021-03-10] MEDS: Ipratropium 1 PUFF INHALER IH SCH ×6 (03:56→23:10)
[2021-03-10] MEDS: Artificial Tears SOLN 15 ML BOTTLE BOTH EYES SCH ×6 (04:08→23:53)
[2021-03-10 04:11] LABS: ABG Base Excess 3 mEq/L (-2 to 3); ABG HCO3 28 mEq/L (21-27); ABG Oxygen Saturation 98 % (95-98); ABG PCO2 48 mmHg (35-45); ABG PH 7.38 pH Units (7.32-7.45); ABG PO2 115 mmHg (85-104); ABG TCO2 30 mEq/L (20-26); Blood Gas Modality ASSIST CONTROL; Blood Gas VT 480 cc
[2021-03-10 04:16] LABS: Basophils % 0.1 %; Eosinophils # 0.1 K/mcL (0.0-0.6); Eosinophils % 0.6 %; Hematocrit 32.2 % (35.3-44.9); Hemoglobin 9.8 g/dL (11.5-15.4); Immature Granulocytes % 1.5 % (0-4); Lymphocytes # 1.9 K/mcL (0.6-4.6); Lymphocytes % 8.6 %; Mean Corpuscular HGB Conc 30.4 g/dL (31.6-35.5); Mean Corpuscular Hemoglobin 26.5 pg (28.0-33.3); Mean Platelet Volume 10.6 fL (9.4-12.4); Monocytes # 1.4 K/mcL (0.0-1.3); Monocytes % 6.5 %; Neutrophils # 17.9 K/mcL (1.6-8.9); Platelet Count 328 K/mcL (140-400); Red Cell Distribution Width 14.8 % (11.5-14.5); Segmented Neutrophils % 82.7 %; White Blood Count 21.6 K/mcL (4.3-11.1)
[2021-03-10 04:29] LABS: VBG Ionized Calcium 1.08 mmol/L (1.15-1.35)
[2021-03-10 04:35] LABS: Alanine Aminotransferase 19 Units/L (7-52); Albumin 2.6 g/dL (3.5-5.7); Albumin/Globulin Ratio 0.8 (1.1-2.2); Alkaline Phosphatase 62 Units/L (34-104); Aspartate Amino Transferase 10 Units/L (13-39); BUN/Creatinine Ratio 47 (6-26); Bilirubin,Total 0.3 mg/dL (0.3-1.0); Blood Urea Nitrogen 28 mg/dL (6-20); Calcium 7.9 mg/dL (8.6-10.3); Carbon Dioxide 29 mEq/L (23-29); Chloride 100 mEq/L (98-107); Globulin 3.1 g/dL (2.4-3.5); Glucose 182 mg/dL (70-105); Magnesium 1.9 mg/dL (1.6-2.6); Osmolality,Calculated 292 (280-300); Phosphorous 4.1 mg/dL (2.7-4.5); Potassium 3.8 mEq/L (3.5-5.1); Sodium 136 mEq/L (136-145); Total Protein 5.7 g/dL (6.4-8.9); eGFR For African Americans > 60 (> 60); eGFR For Non-African Americans > 60 (> 60)
[2021-03-10 04:38] LABS: INR 1.2; Prothrombin Time 13.5 Seconds (9.4-12.1)
[2021-03-10 04:39] LABS: Activated Partial Thrombo Time 48.7 Seconds (26.0-36.0)
[2021-03-10] MEDS: Doxycycline 100 MG in 0.9 % Sodium Chloride Mini Bag 100 ML IVPB SCH ×2 (06:12→17:42)
[2021-03-10] MEDS: Nystatin POWDER 30 GM BOTTLE TP SCH ×2 (06:12→17:39)
[2021-03-10] MEDS: Norepinephrine 4 MG/254 ML IV.SOLN IVC SCH ×2 (06:12→20:03)
[2021-03-10] MEDS: Aspirin 81 MG TAB.CHEW GTUBE SCH (09:20)
[2021-03-10] MEDS: Chlorhexidine Rinse 15 ML MOUTHWASH MM SCH ×2 (09:20→20:04)
[2021-03-10] MEDS: Piperacillin/Tazobactam 3.375 GM in 0.9 % Sodium Chloride Mini Bag 100 ML IVPB SCH ×3 (09:21→23:53)
[2021-03-10] MEDS: Pantoprazole 40 MG VIAL IVP SCH (09:22)
[2021-03-10] MEDS: Furosemide 40 MG/4 ML VIAL IVP SCH (09:23)
[2021-03-10] MEDS: Insulin DETEMIR 100 UNIT/ML X5UNITS SUBQ SCH ×2 (09:24→20:04)
[2021-03-10] MEDS: Calcium Gluconate 1gm/50mL 1 GM/50 ML BAG IVPB SCH ×2 (10:58→14:56)
[2021-03-10] MEDS: Ketoconazole 2% CRM 15 GM TUBE TP SCH ×2 (12:16→23:53)
[2021-03-10] MEDS: Heparin 25,000UNIT/250ML 1/2NS 25,000 UNIT/250 ML IV.SOLN IVC SCH (12:17)
[2021-03-10] MEDS: Midazolam HCl 50 MG/100 ML IV.SOLN IVC SCH (15:14)
[2021-03-10 20:47] LABS: VBG Ionized Calcium 1.09 mmol/L (1.15-1.35)
[2021-03-11] MEDS: Insulin LISPRO 300 UNITS/3 ML VIAL SUBQ SCH ×6 (00:21→20:43)
[2021-03-11] MEDS: FentaNYL (PF) 1,000 MCG/100 ML IV.SOLN IVC SCH ×3 (00:23→10:58)
[2021-03-11] MEDS: Cisatracurium 200 MG in 0.9 % Sodium Chloride 180 ML IVC SCH ×5 (00:23→21:28)
[2021-03-11] MEDS: Ipratropium 1 PUFF INHALER IH SCH ×6 (03:30→23:27)
[2021-03-11 03:57] LABS: ABG Base Excess 6 mEq/L (-2 to 3); ABG HCO3 34 mEq/L (21-27); ABG Oxygen Saturation 97 % (95-98); ABG PCO2 58 mmHg (35-45); ABG PH 7.37 pH Units (7.32-7.45); ABG PO2 94 mmHg (85-104); ABG TCO2 35 mEq/L (20-26); Blood Gas Modality ASSIST CONTROL; Blood Gas VT 400 cc
[2021-03-11] MEDS: Artificial Tears SOLN 15 ML BOTTLE BOTH EYES SCH ×5 (04:19→20:43)
[2021-03-11 04:31] LABS: Basophils % 0.2 %; Eosinophils # 0.1 K/mcL (0.0-0.6); Eosinophils % 0.5 %; Hematocrit 31.6 % (35.3-44.9); Hemoglobin 9.5 g/dL (11.5-15.4); Immature Granulocytes % 1.8 % (0-4); Lymphocytes # 1.6 K/mcL (0.6-4.6); Lymphocytes % 9.2 %; Mean Corpuscular HGB Conc 30.1 g/dL (31.6-35.5); Mean Corpuscular Hemoglobin 26.2 pg (28.0-33.3); Mean Corpuscular Volume 87.1 fL (83.0-100.0); Mean Platelet Volume 10.6 fL (9.4-12.4); Monocytes % 5.6 %; Neutrophils # 14.4 K/mcL (1.6-8.9); Platelet Count 288 K/mcL (140-400); Red Blood Count 3.63 M/mcL (3.82-4.97); Red Cell Distribution Width 14.8 % (11.5-14.5); Segmented Neutrophils % 82.7 %; White Blood Count 17.4 K/mcL (4.3-11.1)
[2021-03-11 04:39] LABS: INR 1.1; Prothrombin Time 12.9 Seconds (9.4-12.1)
[2021-03-11 04:42] LABS: Activated Partial Thrombo Time 36.3 Seconds (26.0-36.0)
[2021-03-11 04:49] LABS: BUN/Creatinine Ratio 48 (6-26); Blood Urea Nitrogen 22 mg/dL (6-20); Calcium 7.8 mg/dL (8.6-10.3); Carbon Dioxide 30 mEq/L (23-29); Chloride 102 mEq/L (98-107); Glucose 178 mg/dL (70-105); Osmolality,Calculated 294 (280-300); Phosphorous 3.3 mg/dL (2.7-4.5); Potassium 3.9 mEq/L (3.5-5.1); Sodium 138 mEq/L (136-145); eGFR For African Americans > 60 (> 60); eGFR For Non-African Americans > 60 (> 60)
[2021-03-11] MEDS: Heparin 25,000UNIT/250ML 1/2NS 25,000 UNIT/250 ML IV.SOLN IVC SCH ×3 (05:35→16:09)
[2021-03-11] MEDS: Nystatin POWDER 30 GM BOTTLE TP SCH (05:42)
[2021-03-11] MEDS: Doxycycline 100 MG in 0.9 % Sodium Chloride Mini Bag 100 ML IVPB SCH ×2 (05:42→17:22)
[2021-03-11] MEDS: Midazolam HCl 50 MG/100 ML IV.SOLN IVC SCH ×2 (07:10→23:51)
[2021-03-11] MEDS: Furosemide 40 MG/4 ML VIAL IVP SCH (07:44)
[2021-03-11] MEDS: Chlorhexidine Rinse 15 ML MOUTHWASH MM SCH ×2 (07:44→20:42)
[2021-03-11] MEDS: Aspirin 81 MG TAB.CHEW GTUBE SCH (07:44)
[2021-03-11] MEDS: Pantoprazole 40 MG VIAL IVP SCH (07:46)
[2021-03-11] MEDS: Piperacillin/Tazobactam 3.375 GM in 0.9 % Sodium Chloride Mini Bag 100 ML IVPB SCH ×2 (07:47→15:52)
[2021-03-11] MEDS: Insulin DETEMIR 100 UNIT/ML X5UNITS SUBQ SCH ×2 (07:48→20:46)
[2021-03-11] MEDS ORDERED: Famotidine 20 MG/2 ML VIAL IVP ONE (10:57)
[2021-03-11] MEDS: Norepinephrine 4 MG/254 ML IV.SOLN IVC SCH (12:00)
[2021-03-11] MEDS: Calcium Gluconate 1gm/50mL 1 GM/50 ML BAG IVPB SCH ×4 (13:00→15:50)
[2021-03-11] MEDS: Ketoconazole 2% CRM 15 GM TUBE TP SCH (15:53)
[2021-03-11] MEDS: FentaNYL (PF) 2,500 MCG/50 ML IV.SOLN IVC SCH (16:00)
[2021-03-11] MEDS: Desitin (Zinc Oxide) 56 GM TUBE TP SCH (20:44)
[2021-03-12] MEDS: Insulin LISPRO 300 UNITS/3 ML VIAL SUBQ SCH ×6 (00:48→20:22)
[2021-03-12] MEDS: Artificial Tears SOLN 15 ML BOTTLE BOTH EYES SCH ×6 (00:49→20:22)
[2021-03-12] MEDS: Piperacillin/Tazobactam 3.375 GM in 0.9 % Sodium Chloride Mini Bag 100 ML IVPB SCH ×2 (00:52→09:17)
[2021-03-12] MEDS: Cisatracurium 200 MG in 0.9 % Sodium Chloride 180 ML IVC SCH ×4 (02:02→18:39)
[2021-03-12] MEDS: Ipratropium 1 PUFF INHALER IH SCH ×6 (03:26→23:51)
[2021-03-12 04:05] LABS: ABG Base Excess 6 mEq/L (-2 to 3); ABG HCO3 31 mEq/L (21-27); ABG Oxygen Saturation 97 % (95-98); ABG PCO2 48 mmHg (35-45); ABG PH 7.42 pH Units (7.32-7.45); ABG PO2 88 mmHg (85-104); ABG TCO2 33 mEq/L (20-26); Blood Gas Modality AF; Blood Gas VT 400 cc
[2021-03-12 05:02] LABS: VBG Ionized Calcium 1.09 mmol/L (1.15-1.35)
[2021-03-12 05:05] LABS: Basophils # 0.1 K/mcL (0.0-0.2); Basophils % 0.3 %; Eosinophils # 0.2 K/mcL (0.0-0.6); Hematocrit 32.2 % (35.3-44.9); Hemoglobin 9.6 g/dL (11.5-15.4); Immature Granulocytes % 2.8 % (0-4); Lymphocytes # 2.3 K/mcL (0.6-4.6); Lymphocytes % 13.2 %; Mean Corpuscular HGB Conc 29.8 g/dL (31.6-35.5); Mean Corpuscular Hemoglobin 26.2 pg (28.0-33.3); Mean Corpuscular Volume 87.7 fL (83.0-100.0); Mean Platelet Volume 10.6 fL (9.4-12.4); Monocytes % 5.8 %; Neutrophils # 13.2 K/mcL (1.6-8.9); Nucleated Red Blood Cells 0.2 /100 WBC (0); Platelet Count 284 K/mcL (140-400); Red Blood Count 3.67 M/mcL (3.82-4.97); Red Cell Distribution Width 14.9 % (11.5-14.5); Segmented Neutrophils % 76.9 %; White Blood Count 17.2 K/mcL (4.3-11.1)
[2021-03-12 05:23] LABS: Alanine Aminotransferase 20 Units/L (7-52); Albumin 2.5 g/dL (3.5-5.7); Albumin/Globulin Ratio 0.8 (1.1-2.2); Alkaline Phosphatase 67 Units/L (34-104); Aspartate Amino Transferase 9 Units/L (13-39); BUN/Creatinine Ratio 58 (6-26); Bilirubin,Indirect 0.3 mg/dL (0.0-1.0); Bilirubin,Total 0.3 mg/dL (0.3-1.0); Blood Urea Nitrogen 23 mg/dL (6-20); Calcium 7.8 mg/dL (8.6-10.3); Carbon Dioxide 31 mEq/L (23-29); Chloride 103 mEq/L (98-107); Globulin 3.1 g/dL (2.4-3.5); Glucose 129 mg/dL (70-105); Osmolality,Calculated 295 (280-300); Phosphorous 2.9 mg/dL (2.7-4.5); Potassium 3.7 mEq/L (3.5-5.1); Sodium 140 mEq/L (136-145); Total Protein 5.6 g/dL (6.4-8.9); eGFR For African Americans > 60 (> 60); eGFR For Non-African Americans > 60 (> 60)
[2021-03-12] MEDS: Doxycycline 100 MG in 0.9 % Sodium Chloride Mini Bag 100 ML IVPB SCH (06:29)
[2021-03-12] MEDS ORDERED: Potassium Chloride 40 MEQ, Lidocaine 1% 2 ML in 0.9 % Sodium Chloride 500 ML IVPB ONE (08:48)
[2021-03-12] MEDS ORDERED: Potassium Chloride Elixir 20 MEQ/15 ML UDC GTUBE ONE (09:06)
[2021-03-12] MEDS: Chlorhexidine Rinse 15 ML MOUTHWASH MM SCH ×2 (09:13→20:22)
[2021-03-12] MEDS: Pantoprazole 40 MG VIAL IVP SCH (09:14)
[2021-03-12] MEDS: Aspirin 81 MG TAB.CHEW GTUBE SCH (09:16)
[2021-03-12] MEDS: Furosemide 40 MG/4 ML VIAL IVP SCH (09:17)
[2021-03-12] MEDS: Desitin (Zinc Oxide) 56 GM TUBE TP SCH ×2 (09:18→20:23)
[2021-03-12] MEDS: Insulin DETEMIR 100 UNIT/ML X5UNITS SUBQ SCH ×2 (09:20→21:31)
[2021-03-12] MEDS: Calcium Gluconate 1gm/50mL 1 GM/50 ML BAG IVPB SCH ×2 (11:37→12:44)
[2021-03-12] MEDS: Famotidine 20 MG/2 ML VIAL IVP SCH ×2 (14:24→20:23)
[2021-03-12] MEDS: Heparin 25,000UNIT/250ML 1/2NS 25,000 UNIT/250 ML IV.SOLN IVC SCH ×2 (15:09)
[2021-03-12] MEDS: Fluconazole 40 MG/ML UDC PO SCH (16:42)
[2021-03-12] MEDS: Midazolam HCl 50 MG/100 ML IV.SOLN IVC SCH (18:40)
[2021-03-13] MEDS: Artificial Tears SOLN 15 ML BOTTLE BOTH EYES SCH ×7 (00:05→23:21)
[2021-03-13] MEDS: Cisatracurium 200 MG in 0.9 % Sodium Chloride 180 ML IVC SCH ×2 (00:15→06:04)
[2021-03-13] MEDS: Insulin LISPRO 300 UNITS/3 ML VIAL SUBQ SCH ×7 (01:42→23:22)
[2021-03-13] MEDS: Ipratropium 1 PUFF INHALER IH SCH ×6 (03:45→23:32)
[2021-03-13 04:07] LABS: Basophils % 0.3 %; Eosinophils # 0.1 K/mcL (0.0-0.6); Eosinophils % 0.9 %; Hematocrit 31.3 % (35.3-44.9); Hemoglobin 9.4 g/dL (11.5-15.4); Immature Granulocytes % 2.9 % (0-4); Lymphocytes % 14.4 %; Mean Corpuscular Hemoglobin 26.6 pg (28.0-33.3); Mean Corpuscular Volume 88.7 fL (83.0-100.0); Mean Platelet Volume 10.6 fL (9.4-12.4); Monocytes # 0.9 K/mcL (0.0-1.3); Monocytes % 6.6 %; Neutrophils # 10.5 K/mcL (1.6-8.9); Nucleated Red Blood Cells 0.4 /100 WBC (0); Platelet Count 251 K/mcL (140-400); Red Blood Count 3.53 M/mcL (3.82-4.97); Segmented Neutrophils % 74.9 %
[2021-03-13 04:30] LABS: Alanine Aminotransferase 15 Units/L (7-52); Albumin 2.5 g/dL (3.5-5.7); Albumin/Globulin Ratio 0.8 (1.1-2.2); Alkaline Phosphatase 55 Units/L (34-104); Aspartate Amino Transferase 8 Units/L (13-39); BUN/Creatinine Ratio 68 (6-26); Bilirubin,Direct 0.1 mg/dL (0.0-0.2); Bilirubin,Indirect 0.2 mg/dL (0.0-1.0); Bilirubin,Total 0.3 mg/dL (0.3-1.0); Blood Urea Nitrogen 26 mg/dL (6-20); Carbon Dioxide 31 mEq/L (23-29); Chloride 103 mEq/L (98-107); Glucose 109 mg/dL (70-105); Magnesium 2.1 mg/dL (1.6-2.6); Osmolality,Calculated 293 (280-300); Phosphorous 3.5 mg/dL (2.7-4.5); Potassium 4.1 mEq/L (3.5-5.1); Sodium 139 mEq/L (136-145); Total Protein 5.5 g/dL (6.4-8.9); eGFR For African Americans > 60 (> 60); eGFR For Non-African Americans > 60 (> 60)
[2021-03-13 04:42] LABS: VBG Ionized Calcium 1.12 mmol/L (1.15-1.35)
[2021-03-13 04:44] LABS: ABG Base Excess 6 mEq/L (-2 to 3); ABG HCO3 33 mEq/L (21-27); ABG Oxygen Saturation 92 % (95-98); ABG PCO2 60 mmHg (35-45); ABG PH 7.35 pH Units (7.32-7.45); ABG PO2 71 mmHg (85-104); ABG TCO2 35 mEq/L (20-26); Blood Gas Modality ASSIST CONTROL; Blood Gas VT 380 cc
[2021-03-13] MEDS: Heparin 25,000UNIT/250ML 1/2NS 25,000 UNIT/250 ML IV.SOLN IVC SCH ×3 (06:31→19:28)
[2021-03-13] MEDS: Chlorhexidine Rinse 15 ML MOUTHWASH MM SCH ×2 (08:27→19:40)
[2021-03-13] MEDS: Furosemide 40 MG/4 ML VIAL IVP SCH ×2 (08:27→19:40)
[2021-03-13] MEDS: Desitin (Zinc Oxide) 56 GM TUBE TP SCH ×2 (08:28→19:40)
[2021-03-13] MEDS: Famotidine 20 MG/2 ML VIAL IVP SCH ×2 (08:28→19:42)
[2021-03-13] MEDS: Aspirin 81 MG TAB.CHEW GTUBE SCH (08:29)
[2021-03-13] MEDS: Insulin DETEMIR 100 UNIT/ML X5UNITS SUBQ SCH ×2 (08:30→20:45)
[2021-03-13] MEDS: Docusate Oral Soln 100 MG/10 ML UDC GTUBE SCH ×2 (13:03→19:40)
[2021-03-13] MEDS: Midazolam HCl 50 MG/100 ML IV.SOLN IVC SCH ×2 (13:20→22:44)
[2021-03-13] MEDS: Norepinephrine 4 MG/254 ML IV.SOLN IVC SCH (14:19)
[2021-03-13] MEDS: Fluconazole 40 MG/ML UDC PO SCH (15:53)
[2021-03-13] MEDS: FentaNYL (PF) 2,500 MCG/50 ML IV.SOLN IVC SCH ×2 (17:26→19:12)
[2021-03-14] MEDS: Artificial Tears SOLN 15 ML BOTTLE BOTH EYES SCH ×6 (03:12→23:13)
[2021-03-14 03:15] LABS: Basophils # 0.1 K/mcL (0.0-0.2); Basophils % 0.3 %; Eosinophils # 0.1 K/mcL (0.0-0.6); Eosinophils % 0.7 %; Hematocrit 32.3 % (35.3-44.9); Hemoglobin 9.8 g/dL (11.5-15.4); Immature Granulocytes % 3.1 % (0-4); Lymphocytes # 2.1 K/mcL (0.6-4.6); Lymphocytes % 12.7 %; Mean Corpuscular HGB Conc 30.3 g/dL (31.6-35.5); Mean Corpuscular Hemoglobin 26.7 pg (28.0-33.3); Mean Platelet Volume 10.7 fL (9.4-12.4); Monocytes # 1.1 K/mcL (0.0-1.3); Monocytes % 6.6 %; Neutrophils # 12.5 K/mcL (1.6-8.9); Nucleated Red Blood Cells 0.2 /100 WBC (0); Platelet Count 276 K/mcL (140-400); Red Blood Count 3.67 M/mcL (3.82-4.97); Red Cell Distribution Width 15.3 % (11.5-14.5); Segmented Neutrophils % 76.6 %; White Blood Count 16.3 K/mcL (4.3-11.1)
[2021-03-14 03:27] LABS: VBG Ionized Calcium 1.08 mmol/L (1.15-1.35)
[2021-03-14 03:34] LABS: Alanine Aminotransferase 16 Units/L (7-52); Albumin 2.7 g/dL (3.5-5.7); Albumin/Globulin Ratio 0.8 (1.1-2.2); Alkaline Phosphatase 58 Units/L (34-104); Aspartate Amino Transferase 12 Units/L (13-39); BUN/Creatinine Ratio 58 (6-26); Bilirubin,Direct 0.1 mg/dL (0.0-0.2); Bilirubin,Indirect 0.3 mg/dL (0.0-1.0); Bilirubin,Total 0.4 mg/dL (0.3-1.0); Blood Urea Nitrogen 21 mg/dL (6-20); Carbon Dioxide 34 mEq/L (23-29); Chloride 100 mEq/L (98-107); Globulin 3.2 g/dL (2.4-3.5); Glucose 142 mg/dL (70-105); Magnesium 1.9 mg/dL (1.6-2.6); Osmolality,Calculated 293 (280-300); Potassium 3.8 mEq/L (3.5-5.1); Sodium 139 mEq/L (136-145); Total Protein 5.9 g/dL (6.4-8.9); eGFR For African Americans > 60 (> 60); eGFR For Non-African Americans > 60 (> 60)
[2021-03-14] MEDS: Insulin LISPRO 300 UNITS/3 ML VIAL SUBQ SCH ×6 (03:39→23:14)
[2021-03-14] MEDS: Ipratropium 1 PUFF INHALER IH SCH ×6 (04:02→23:35)
[2021-03-14 05:12] LABS: ABG Base Excess 5 mEq/L (-2 to 3); ABG HCO3 31 mEq/L (21-27); ABG Oxygen Saturation 97 % (95-98); ABG PCO2 50 mmHg (35-45); ABG PO2 90 mmHg (85-104); ABG TCO2 33 mEq/L (20-26); Blood Gas Modality ASSIST CONTROL; Blood Gas VT 380 cc
[2021-03-14] MEDS: Insulin DETEMIR 100 UNIT/ML X5UNITS SUBQ SCH ×2 (08:28→20:03)
[2021-03-14] MEDS: Chlorhexidine Rinse 15 ML MOUTHWASH MM SCH ×2 (08:33→20:02)
[2021-03-14] MEDS: Docusate Oral Soln 100 MG/10 ML UDC GTUBE SCH ×2 (08:33→20:02)
[2021-03-14] MEDS: Aspirin 81 MG TAB.CHEW GTUBE SCH (08:34)
[2021-03-14] MEDS: Famotidine 20 MG/2 ML VIAL IVP SCH ×2 (08:34→20:02)
[2021-03-14] MEDS: Acetaminophen 325 MG TABLET PO PRN ×2 (08:34→16:19)
[2021-03-14] MEDS: Desitin (Zinc Oxide) 56 GM TUBE TP SCH ×2 (08:34→20:03)
[2021-03-14] MEDS: Furosemide 40 MG/4 ML VIAL IVP SCH ×2 (08:36→20:03)
[2021-03-14] MEDS: Midazolam HCl 50 MG/100 ML IV.SOLN IVC SCH ×2 (09:07→20:01)
[2021-03-14] MEDS: Heparin 25,000UNIT/250ML 1/2NS 25,000 UNIT/250 ML IV.SOLN IVC SCH ×3 (09:08→21:21)
[2021-03-14] MEDS ORDERED: Acetaminophen 325 MG TABLET PO ONE (10:48)
[2021-03-14] MEDS: Fluconazole 40 MG/ML UDC PO SCH (16:10)
[2021-03-14 17:20] LABS: Bilirubin,Urine Negative (Negative); Blood,Urine Moderate (Negative); Clarity,Urine Clear (Clear); Color,Urine Light-Yellow (Yellow); Glucose,Urine (UA) Normal (Normal); Hyaline Casts,Urine Few per lpf (None Seen); Ketones,Urine Negative (Negative); Leukocyte Esterase,Urine Negative (Negative); Mucus,Urine Few per lpf (None-Few); Nitrite,Urine Negative (Negative); Protein,Urine Negative (Neg-Trace); RBC,Urine 0-3 per hpf (0-3); Specific Gravity,Urine 1.014 (1.010-1.025); Urobilinogen,Urine Normal (Normal)
[2021-03-14] MEDS: FentaNYL (PF) 2,500 MCG/50 ML IV.SOLN IVC SCH (19:01)
[2021-03-14] MEDS: Vancomycin 2,000 MG/520 ML IV.SOLN IVPB SCH (19:02)
[2021-03-14] MEDS: Aztreonam 2,000 MG in 0.9 % Sodium Chloride Mini Bag 100 ML IVPB SCH (23:23)
[2021-03-14] MEDS: Norepinephrine 4 MG/254 ML IV.SOLN IVC SCH (23:24)
[2021-03-15 03:22] LABS: Basophils % 0.2 %; Eosinophils # 0.1 K/mcL (0.0-0.6); Eosinophils % 1.2 %; Hematocrit 28.7 % (35.3-44.9); Hemoglobin 8.7 g/dL (11.5-15.4); Lymphocytes # 1.7 K/mcL (0.6-4.6); Lymphocytes % 16.6 %; Mean Corpuscular HGB Conc 30.3 g/dL (31.6-35.5); Mean Corpuscular Hemoglobin 26.8 pg (28.0-33.3); Mean Corpuscular Volume 88.3 fL (83.0-100.0); Mean Platelet Volume 10.6 fL (9.4-12.4); Monocytes # 0.7 K/mcL (0.0-1.3); Monocytes % 6.7 %; Neutrophils # 7.4 K/mcL (1.6-8.9); Nucleated Red Blood Cells 0.2 /100 WBC (0); Platelet Count 215 K/mcL (140-400); Red Blood Count 3.25 M/mcL (3.82-4.97); Red Cell Distribution Width 15.6 % (11.5-14.5); Segmented Neutrophils % 73.3 %; White Blood Count 10.1 K/mcL (4.3-11.1)
[2021-03-15] MEDS: Artificial Tears SOLN 15 ML BOTTLE BOTH EYES SCH ×6 (03:22→23:18)
[2021-03-15] MEDS: Ipratropium 1 PUFF INHALER IH SCH ×6 (03:24→23:30)
[2021-03-15 03:33] LABS: VBG Ionized Calcium 1.06 mmol/L (1.15-1.35)
[2021-03-15 03:40] LABS: Alanine Aminotransferase 13 Units/L (7-52); Albumin 2.5 g/dL (3.5-5.7); Albumin/Globulin Ratio 0.9 (1.1-2.2); Alkaline Phosphatase 42 Units/L (34-104); Aspartate Amino Transferase 11 Units/L (13-39); BUN/Creatinine Ratio 61 (6-26); Bilirubin,Direct 0.1 mg/dL (0.0-0.2); Bilirubin,Indirect 0.2 mg/dL (0.0-1.0); Bilirubin,Total 0.3 mg/dL (0.3-1.0); Blood Urea Nitrogen 20 mg/dL (6-20); Calcium 7.7 mg/dL (8.6-10.3); Carbon Dioxide 35 mEq/L (23-29); Chloride 101 mEq/L (98-107); Globulin 2.9 g/dL (2.4-3.5); Glucose 102 mg/dL (70-105); Magnesium 1.9 mg/dL (1.6-2.6); Osmolality,Calculated 295 (280-300); Phosphorous 3.7 mg/dL (2.7-4.5); Potassium 3.8 mEq/L (3.5-5.1); Sodium 141 mEq/L (136-145); Total Protein 5.4 g/dL (6.4-8.9); eGFR For African Americans > 60 (> 60); eGFR For Non-African Americans > 60 (> 60)
[2021-03-15] MEDS: Insulin LISPRO 300 UNITS/3 ML VIAL SUBQ SCH ×6 (03:44→23:18)
[2021-03-15] MEDS: Calcium Gluconate 1gm/50mL 1 GM/50 ML BAG IVPB SCH ×2 (04:07→04:35)
[2021-03-15 04:45] LABS: ABG Base Excess 10 mEq/L (-2 to 3); ABG HCO3 37 mEq/L (21-27); ABG Oxygen Saturation 94 % (95-98); ABG PCO2 62 mmHg (35-45); ABG PH 7.38 pH Units (7.32-7.45); ABG PO2 73 mmHg (85-104); ABG TCO2 39 mEq/L (20-26); Blood Gas VT 350 cc
[2021-03-15] MEDS: Doxycycline 100 MG in 0.9 % Sodium Chloride Mini Bag 100 ML IVPB SCH ×2 (05:02→17:51)
[2021-03-15] MEDS: Midazolam HCl 50 MG/100 ML IV.SOLN IVC SCH ×2 (05:32→16:36)
[2021-03-15] MEDS: Vancomycin 2,000 MG/520 ML IV.SOLN IVPB SCH ×2 (06:02→18:58)
[2021-03-15] MEDS: Aztreonam 2,000 MG in 0.9 % Sodium Chloride Mini Bag 100 ML IVPB SCH ×3 (07:37→23:53)
[2021-03-15] MEDS: Insulin DETEMIR 100 UNIT/ML X5UNITS SUBQ SCH ×2 (07:39→20:05)
[2021-03-15] MEDS: Chlorhexidine Rinse 15 ML MOUTHWASH MM SCH ×2 (07:39→20:05)
[2021-03-15] MEDS: Docusate Oral Soln 100 MG/10 ML UDC GTUBE SCH ×2 (07:40→20:04)
[2021-03-15] MEDS: Famotidine 20 MG/2 ML VIAL IVP SCH ×2 (07:40→20:05)
[2021-03-15] MEDS: Furosemide 40 MG/4 ML VIAL IVP SCH ×2 (07:40→20:05)
[2021-03-15] MEDS: Aspirin 81 MG TAB.CHEW GTUBE SCH (07:40)
[2021-03-15] MEDS: Desitin (Zinc Oxide) 56 GM TUBE TP SCH ×2 (07:41→20:06)
[2021-03-15] MEDS: Heparin 25,000UNIT/250ML 1/2NS 25,000 UNIT/250 ML IV.SOLN IVC SCH ×2 (09:52→21:13)
[2021-03-15 12:02] LABS: Hematocrit 32.7 % (35.3-44.9); Hemoglobin 9.2 g/dL (11.5-15.4)
[2021-03-15] MEDS: FentaNYL (PF) 2,500 MCG/50 ML IV.SOLN IVC SCH (15:32)
[2021-03-15] MEDS: Fluconazole 40 MG/ML UDC PO SCH (15:33)
[2021-03-15] MEDS: Norepinephrine 4 MG/254 ML IV.SOLN IVC SCH (23:53)
[2021-03-15] MEDS: Cisatracurium 200 MG in 0.9 % Sodium Chloride 180 ML IVC SCH (23:54)
[2021-03-16] MEDS: Midazolam HCl 50 MG/100 ML IV.SOLN IVC SCH ×2 (02:10→12:10)
[2021-03-16] MEDS: Artificial Tears SOLN 15 ML BOTTLE BOTH EYES SCH ×6 (03:19→23:54)
[2021-03-16] MEDS: Ipratropium 1 PUFF INHALER IH SCH ×6 (03:41→23:20)
[2021-03-16 03:42] LABS: Red Blood Count 3.59 M/mcL (3.82-4.97); Red Cell Distribution Width 15.5 % (11.5-14.5)
[2021-03-16 03:44] LABS: Basophils % 0.2 %; Eosinophils # 0.1 K/mcL (0.0-0.6); Eosinophils % 0.8 %; Hematocrit 32.9 % (35.3-44.9); Hemoglobin 9.5 g/dL (11.5-15.4); Immature Granulocytes % 2.3 % (0-4); Lymphocytes # 1.4 K/mcL (0.6-4.6); Lymphocytes % 10.1 %; Mean Corpuscular HGB Conc 28.9 g/dL (31.6-35.5); Mean Corpuscular Hemoglobin 26.5 pg (28.0-33.3); Mean Corpuscular Volume 91.6 fL (83.0-100.0); Mean Platelet Volume 10.8 fL (9.4-12.4); Monocytes % 7.1 %; Neutrophils # 10.7 K/mcL (1.6-8.9); Nucleated Red Blood Cells 0.1 /100 WBC (0); Platelet Count 258 K/mcL (140-400); Segmented Neutrophils % 79.5 %; White Blood Count 13.4 K/mcL (4.3-11.1)
[2021-03-16 04:01] LABS: Alanine Aminotransferase 16 Units/L (7-52); Albumin 2.8 g/dL (3.5-5.7); Albumin/Globulin Ratio 0.8 (1.1-2.2); Alkaline Phosphatase 52 Units/L (34-104); Aspartate Amino Transferase 16 Units/L (13-39); BUN/Creatinine Ratio 65 (6-26); Bilirubin,Direct 0.1 mg/dL (0.0-0.2); Bilirubin,Indirect 0.3 mg/dL (0.0-1.0); Bilirubin,Total 0.4 mg/dL (0.3-1.0); Blood Urea Nitrogen 22 mg/dL (6-20); Calcium 8.2 mg/dL (8.6-10.3); Carbon Dioxide 36 mEq/L (23-29); Chloride 99 mEq/L (98-107); Globulin 3.4 g/dL (2.4-3.5); Glucose 116 mg/dL (70-105); Magnesium 1.9 mg/dL (1.6-2.6); Osmolality,Calculated 296 (280-300); Phosphorous 3.8 mg/dL (2.7-4.5); Potassium 3.8 mEq/L (3.5-5.1); Sodium 141 mEq/L (136-145); Total Protein 6.2 g/dL (6.4-8.9); eGFR For African Americans > 60 (> 60); eGFR For Non-African Americans > 60 (> 60)
[2021-03-16] MEDS: Insulin LISPRO 300 UNITS/3 ML VIAL SUBQ SCH ×5 (04:11→20:58)
[2021-03-16 04:15] LABS: Anisocytosis 1+ (Not Present); Hypochromasia Present (Not Present); Platelet Estimate Normal (Normal)
[2021-03-16 04:21] LABS: ABG Base Excess 9 mEq/L (-2 to 3); ABG HCO3 37 mEq/L (21-27); ABG Oxygen Saturation 89 % (95-98); ABG PCO2 70 mmHg (35-45); ABG PH 7.33 pH Units (7.32-7.45); ABG PO2 64 mmHg (85-104); ABG TCO2 39 mEq/L (20-26); Blood Gas VT 350 cc
[2021-03-16] MEDS: Doxycycline 100 MG in 0.9 % Sodium Chloride Mini Bag 100 ML IVPB SCH ×2 (05:01→17:42)
[2021-03-16] MEDS: Vancomycin 2,000 MG/520 ML IV.SOLN IVPB SCH ×2 (06:16→18:05)
[2021-03-16] MEDS: Chlorhexidine Rinse 15 ML MOUTHWASH MM SCH ×2 (07:35→20:58)
[2021-03-16] MEDS: Furosemide 40 MG/4 ML VIAL IVP SCH ×2 (07:35→20:59)
[2021-03-16] MEDS: Insulin DETEMIR 100 UNIT/ML X5UNITS SUBQ SCH ×2 (07:35→21:00)
[2021-03-16] MEDS: Aspirin 81 MG TAB.CHEW GTUBE SCH (07:35)
[2021-03-16] MEDS: Docusate Oral Soln 100 MG/10 ML UDC GTUBE SCH ×2 (07:36→20:58)
[2021-03-16] MEDS: Aztreonam 2,000 MG in 0.9 % Sodium Chloride Mini Bag 100 ML IVPB SCH ×3 (07:36→23:54)
[2021-03-16] MEDS: Famotidine 20 MG/2 ML VIAL IVP SCH ×2 (07:36→20:58)
[2021-03-16] MEDS: Desitin (Zinc Oxide) 56 GM TUBE TP SCH ×2 (07:37→20:59)
[2021-03-16 09:42] LABS: ABG Base Excess 9 mEq/L (-2 to 3); ABG HCO3 37 mEq/L (21-27); ABG Oxygen Saturation 88 % (95-98); ABG PCO2 73 mmHg (35-45); ABG PH 7.31 pH Units (7.32-7.45); ABG PO2 62 mmHg (85-104); ABG TCO2 39 mEq/L (20-26); Blood Gas Modality ASSIST CONTROL; Blood Gas VT 400 cc
[2021-03-16] MEDS: Heparin 25,000UNIT/250ML 1/2NS 25,000 UNIT/250 ML IV.SOLN IVC SCH (12:00)
[2021-03-16] MEDS: Metoclopramide 10 MG/2 ML VIAL IVP SCH ×2 (12:27→20:58)
[2021-03-16] MEDS: Bisacodyl 10 MG RECTAL SUPPOSITORY RC SCH (12:28)
[2021-03-16] MEDS: FentaNYL (PF) 2,500 MCG/50 ML IV.SOLN IVC SCH (14:43)
[2021-03-16] MEDS: Loratadine 10 MG TABLET PO SCH (15:53)
[2021-03-16] MEDS: Fluconazole 40 MG/ML UDC PO SCH (15:54)
[2021-03-17] MEDS: Insulin LISPRO 300 UNITS/3 ML VIAL SUBQ SCH ×6 (00:07→20:57)
[2021-03-17] MEDS: Heparin 25,000UNIT/250ML 1/2NS 25,000 UNIT/250 ML IV.SOLN IVC SCH ×2 (03:11→18:42)
[2021-03-17] MEDS: Ipratropium 1 PUFF INHALER IH SCH ×6 (03:11→23:35)
[2021-03-17 04:05] LABS: ABG Base Excess 11 mEq/L (-2 to 3); ABG HCO3 39 mEq/L (21-27); ABG Oxygen Saturation 90 % (95-98); ABG PCO2 69 mmHg (35-45); ABG PH 7.36 pH Units (7.32-7.45); ABG PO2 65 mmHg (85-104); ABG TCO2 41 mEq/L (20-26); Blood Gas VT 400 cc
[2021-03-17] MEDS: Artificial Tears SOLN 15 ML BOTTLE BOTH EYES SCH ×5 (04:26→20:56)
[2021-03-17] MEDS: Metoclopramide 10 MG/2 ML VIAL IVP SCH ×3 (04:26→18:18)
[2021-03-17 04:56] LABS: Basophils % 0.2 %; Eosinophils % 1.6 %; Mean Platelet Volume 10.6 fL (9.4-12.4); Nucleated Red Blood Cells 0.2 /100 WBC (0); Red Cell Distribution Width 15.9 % (11.5-14.5)
[2021-03-17 04:57] LABS: Eosinophils # 0.2 K/mcL (0.0-0.6); Hematocrit 31.1 % (35.3-44.9); Hemoglobin 9.1 g/dL (11.5-15.4); Immature Granulocytes % 2.1 % (0-4); Lymphocytes # 1.5 K/mcL (0.6-4.6); Mean Corpuscular HGB Conc 29.3 g/dL (31.6-35.5); Mean Corpuscular Hemoglobin 26.8 pg (28.0-33.3); Mean Corpuscular Volume 91.7 fL (83.0-100.0); Monocytes # 0.9 K/mcL (0.0-1.3); Monocytes % 7.5 %; Platelet Count 257 K/mcL (140-400); Red Blood Count 3.39 M/mcL (3.82-4.97); Segmented Neutrophils % 76.6 %; White Blood Count 12.1 K/mcL (4.3-11.1)
[2021-03-17 04:58] LABS: VBG Ionized Calcium 1.14 mmol/L (1.15-1.35)
[2021-03-17 04:59] LABS: Neutrophils # 9.3 K/mcL (1.6-8.9)
[2021-03-17 05:12] LABS: Alanine Aminotransferase 13 Units/L (7-52); Albumin 2.7 g/dL (3.5-5.7); Alkaline Phosphatase 48 Units/L (34-104); Aspartate Amino Transferase 14 Units/L (13-39); BUN/Creatinine Ratio 74 (6-26); Bilirubin,Direct 0.2 mg/dL (0.0-0.2); Bilirubin,Indirect 0.2 mg/dL (0.0-1.0); Bilirubin,Total 0.4 mg/dL (0.3-1.0); Blood Urea Nitrogen 20 mg/dL (6-20); Carbon Dioxide 39 mEq/L (23-29); Chloride 100 mEq/L (98-107); Globulin 2.8 g/dL (2.4-3.5); Glucose 107 mg/dL (70-105); Magnesium 1.7 mg/dL (1.6-2.6); Osmolality,Calculated 299 (280-300); Phosphorous 2.9 mg/dL (2.7-4.5); Potassium 3.4 mEq/L (3.5-5.1); Sodium 143 mEq/L (136-145); Total Protein 5.5 g/dL (6.4-8.9); eGFR For African Americans > 60 (> 60); eGFR For Non-African Americans > 60 (> 60)
[2021-03-17] MEDS ORDERED: Calcium Gluconate 1gm/50mL 1 GM/50 ML BAG IVPB PRN (06:00)
[2021-03-17] MEDS: Midazolam HCl 50 MG/100 ML IV.SOLN IVC SCH (06:23)
[2021-03-17] MEDS: Cisatracurium 200 MG in 0.9 % Sodium Chloride 180 ML IVC SCH (06:24)
[2021-03-17] MEDS: Norepinephrine 4 MG/254 ML IV.SOLN IVC SCH (06:24)
[2021-03-17] MEDS: Doxycycline 100 MG in 0.9 % Sodium Chloride Mini Bag 100 ML IVPB SCH ×2 (06:25→18:18)
[2021-03-17] MEDS: Potassium Chloride 40 MEQ/200 ML BAG IVPB PRN (06:26)
[2021-03-17] MEDS: Vancomycin 2,000 MG/520 ML IV.SOLN IVPB SCH ×2 (06:26→18:26)
[2021-03-17] MEDS: Loratadine 10 MG TABLET PO SCH (08:18)
[2021-03-17] MEDS: Chlorhexidine Rinse 15 ML MOUTHWASH MM SCH ×2 (08:19→20:57)
[2021-03-17] MEDS: Famotidine 20 MG/2 ML VIAL IVP SCH ×2 (08:19→20:58)
[2021-03-17] MEDS: Aztreonam 2,000 MG in 0.9 % Sodium Chloride Mini Bag 100 ML IVPB SCH ×2 (08:19→15:12)
[2021-03-17] MEDS: Aspirin 81 MG TAB.CHEW GTUBE SCH (08:19)
[2021-03-17] MEDS: Docusate Oral Soln 100 MG/10 ML UDC GTUBE SCH ×2 (08:19→20:57)
[2021-03-17] MEDS: Furosemide 40 MG/4 ML VIAL IVP SCH ×2 (08:19→21:01)
[2021-03-17] MEDS: Insulin DETEMIR 100 UNIT/ML X5UNITS SUBQ SCH ×2 (08:19→20:57)
[2021-03-17] MEDS: Desitin (Zinc Oxide) 56 GM TUBE TP SCH ×2 (08:20→21:01)
[2021-03-17] MEDS ORDERED: predniSONE 20 MG TABLET PO SCH (09:00)
[2021-03-17] MEDS: Bisacodyl 10 MG RECTAL SUPPOSITORY RC SCH (11:45)
[2021-03-17] MEDS: Fluconazole 40 MG/ML UDC PO SCH (15:12)
[2021-03-17 17:15] LABS: BUN/Creatinine Ratio 58 (6-26); Blood Urea Nitrogen 23 mg/dL (6-20); Calcium 8.2 mg/dL (8.6-10.3); Carbon Dioxide 40 mEq/L (23-29); Chloride 99 mEq/L (98-107); Glucose 239 mg/dL (70-105); Osmolality,Calculated 305 (280-300); Potassium 4.4 mEq/L (3.5-5.1); Sodium 142 mEq/L (136-145); eGFR For African Americans > 60 (> 60); eGFR For Non-African Americans > 60 (> 60)
[2021-03-18] MEDS: Aztreonam 2,000 MG in 0.9 % Sodium Chloride Mini Bag 100 ML IVPB SCH ×2 (00:13→07:50)
[2021-03-18] MEDS: Artificial Tears SOLN 15 ML BOTTLE BOTH EYES SCH ×6 (00:13→20:26)
[2021-03-18] MEDS: Insulin LISPRO 300 UNITS/3 ML VIAL SUBQ SCH ×6 (00:14→20:26)
[2021-03-18] MEDS: Ipratropium 1 PUFF INHALER IH SCH ×6 (03:42→23:12)
[2021-03-18] MEDS: Metoclopramide 10 MG/2 ML VIAL IVP SCH ×3 (03:59→20:27)
[2021-03-18 04:27] LABS: VBG Ionized Calcium 1.14 mmol/L (1.15-1.35)
[2021-03-18 04:54] LABS: ABG Base Excess 11 mEq/L (-2 to 3); ABG HCO3 43 mEq/L (21-27); ABG Oxygen Saturation 86 % (95-98); ABG PCO2 121 mmHg (35-45); ABG PH 7.16 pH Units (7.32-7.45); ABG PO2 71 mmHg (85-104); ABG TCO2 47 mEq/L (20-26); Blood Gas Modality AF; Blood Gas VT 400 cc
[2021-03-18 04:59] LABS: Alanine Aminotransferase 16 Units/L (7-52); Albumin 2.8 g/dL (3.5-5.7); Albumin/Globulin Ratio 0.9 (1.1-2.2); Alkaline Phosphatase 56 Units/L (34-104); Aspartate Amino Transferase 15 Units/L (13-39); BUN/Creatinine Ratio 71 (6-26); Bilirubin,Direct 0.3 mg/dL (0.0-0.2); Bilirubin,Indirect 0.3 mg/dL (0.0-1.0); Bilirubin,Total 0.6 mg/dL (0.3-1.0); Blood Urea Nitrogen 32 mg/dL (6-20); Carbon Dioxide 42 mEq/L (23-29); Chloride 101 mEq/L (98-107); Globulin 3.1 g/dL (2.4-3.5); Glucose 152 mg/dL (70-105); Magnesium 1.9 mg/dL (1.6-2.6); Osmolality,Calculated 308 (280-300); Phosphorous 4.1 mg/dL (2.7-4.5); Potassium 3.8 mEq/L (3.5-5.1); Sodium 144 mEq/L (136-145); Total Protein 5.9 g/dL (6.4-8.9); eGFR For African Americans > 60 (> 60); eGFR For Non-African Americans > 60 (> 60)
[2021-03-18 05:36] LABS: Basophils % 0.1 %; Eosinophils % 0.1 %; Hematocrit 32.3 % (35.3-44.9); Hemoglobin 8.9 g/dL (11.5-15.4); Immature Granulocytes % 0.8 % (0-4); Lymphocytes # 0.6 K/mcL (0.6-4.6); Lymphocytes % 3.8 %; Mean Corpuscular HGB Conc 27.6 g/dL (31.6-35.5); Mean Corpuscular Hemoglobin 26.6 pg (28.0-33.3); Mean Corpuscular Volume 96.7 fL (83.0-100.0); Mean Platelet Volume 10.5 fL (9.4-12.4); Monocytes # 0.7 K/mcL (0.0-1.3); Monocytes % 4.1 %; Neutrophils # 14.6 K/mcL (1.6-8.9); Nucleated Red Blood Cells 0.3 /100 WBC (0); Platelet Count 237 K/mcL (140-400); Red Blood Count 3.34 M/mcL (3.82-4.97); Red Cell Distribution Width 15.9 % (11.5-14.5); Segmented Neutrophils % 91.1 %
[2021-03-18] MEDS: Doxycycline 100 MG in 0.9 % Sodium Chloride Mini Bag 100 ML IVPB SCH ×2 (06:02→17:28)
[2021-03-18] MEDS: Vancomycin 2,000 MG/520 ML IV.SOLN IVPB SCH ×2 (06:03→18:48)
[2021-03-18] MEDS: Potassium Chloride 40 MEQ/200 ML BAG IVPB PRN (06:03)
[2021-03-18 06:16] LABS: Anisocytosis 1+ (Not Present); Hypochromasia Present (Not Present); Platelet Estimate Normal (Normal); Polychromasia 1+ (Not Present)
[2021-03-18] MEDS: Insulin DETEMIR 100 UNIT/ML X5UNITS SUBQ SCH ×2 (07:49→20:28)
[2021-03-18] MEDS: Loratadine 10 MG TABLET PO SCH (07:49)
[2021-03-18] MEDS: Docusate Oral Soln 100 MG/10 ML UDC GTUBE SCH ×2 (07:49→20:27)
[2021-03-18] MEDS: Furosemide 40 MG/4 ML VIAL IVP SCH ×2 (07:50→20:27)
[2021-03-18] MEDS: Famotidine 20 MG/2 ML VIAL IVP SCH (07:50)
[2021-03-18] MEDS: Chlorhexidine Rinse 15 ML MOUTHWASH MM SCH ×2 (07:50→20:27)
[2021-03-18] MEDS: Aspirin 81 MG TAB.CHEW GTUBE SCH (07:51)
[2021-03-18] MEDS: Desitin (Zinc Oxide) 56 GM TUBE TP SCH ×2 (07:51→20:27)
[2021-03-18] MEDS: Heparin 25,000UNIT/250ML 1/2NS 25,000 UNIT/250 ML IV.SOLN IVC SCH (07:52)
[2021-03-18 08:55] LABS: ABG Base Excess 11 mEq/L (-2 to 3); ABG HCO3 41 mEq/L (21-27); ABG Oxygen Saturation 87 % (95-98); ABG PCO2 96 mmHg (35-45); ABG PH 7.24 pH Units (7.32-7.45); ABG PO2 67 mmHg (85-104); ABG TCO2 44 mEq/L (20-26); Blood Gas Modality AF; Blood Gas VT 400 cc
[2021-03-18] MEDS ORDERED: predniSONE 10 MG TABLET PO SCH (09:00)
[2021-03-18] MEDS: FentaNYL (PF) 2,500 MCG/50 ML IV.SOLN IVC SCH (09:57)
[2021-03-18] MEDS: Bisacodyl 10 MG RECTAL SUPPOSITORY RC SCH (11:15)
[2021-03-18] MEDS: Cefepime HCl 2,000 MG in Water for inj. (sterile) 20 ML IVP SCH ×2 (13:24→22:18)
[2021-03-18] MEDS: Fluconazole 40 MG/ML UDC PO SCH (15:19)
[2021-03-19] MEDS: Artificial Tears SOLN 15 ML BOTTLE BOTH EYES SCH ×7 (01:03→23:46)
[2021-03-19] MEDS: Heparin 25,000UNIT/250ML 1/2NS 25,000 UNIT/250 ML IV.SOLN IVC SCH ×2 (01:03→14:23)
[2021-03-19] MEDS: Insulin LISPRO 300 UNITS/3 ML VIAL SUBQ SCH ×6 (01:04→20:07)
[2021-03-19] MEDS: Ipratropium 1 PUFF INHALER IH SCH ×6 (03:31→23:26)
[2021-03-19] MEDS: FentaNYL (PF) 2,500 MCG/50 ML IV.SOLN IVC SCH ×2 (04:11→13:25)
[2021-03-19] MEDS: Metoclopramide 10 MG/2 ML VIAL IVP SCH ×3 (04:12→20:07)
[2021-03-19 04:16] LABS: ABG Base Excess 16 mEq/L (-2 to 3); ABG HCO3 46 mEq/L (21-27); ABG Oxygen Saturation 92 % (95-98); ABG PCO2 102 mmHg (35-45); ABG PH 7.26 pH Units (7.32-7.45); ABG PO2 80 mmHg (85-104); ABG TCO2 49 mEq/L (20-26); Blood Gas Modality ASSIST CONTROL; Blood Gas VT 400 cc
[2021-03-19 04:20] LABS: Basophils % 0.3 %; Hemoglobin 8.4 g/dL (11.5-15.4); Mean Platelet Volume 10.6 fL (9.4-12.4)
[2021-03-19 04:22] LABS: Eosinophils # 0.1 K/mcL (0.0-0.6); Eosinophils % 0.5 %; Hematocrit 31.1 % (35.3-44.9); Immature Granulocytes % 1.8 % (0-4); Lymphocytes # 0.8 K/mcL (0.6-4.6); Lymphocytes % 7.3 %; Mean Corpuscular Hemoglobin 26.3 pg (28.0-33.3); Mean Corpuscular Volume 97.2 fL (83.0-100.0); Monocytes # 0.7 K/mcL (0.0-1.3); Monocytes % 6.1 %; Nucleated Red Blood Cells 0.4 /100 WBC (0); Platelet Count 261 K/mcL (140-400); Red Cell Distribution Width 15.9 % (11.5-14.5)
[2021-03-19 04:25] LABS: Neutrophils # 9.2 K/mcL (1.6-8.9)
[2021-03-19 04:39] LABS: BUN/Creatinine Ratio 94 (6-26); Blood Urea Nitrogen 31 mg/dL (6-20); Calcium 8.4 mg/dL (8.6-10.3); Carbon Dioxide > 45 mEq/L (23-29); Chloride 101 mEq/L (98-107); Glucose 126 mg/dL (70-105); Magnesium 2.1 mg/dL (1.6-2.6); Osmolality,Calculated 312 (280-300); Potassium 3.5 mEq/L (3.5-5.1); Sodium 147 mEq/L (136-145); eGFR For African Americans > 60 (> 60); eGFR For Non-African Americans > 60 (> 60)
[2021-03-19 05:02] LABS: Anisocytosis 1+ (Not Present); Hypochromasia Present (Not Present); Platelet Estimate Normal (Normal)
[2021-03-19] MEDS: Doxycycline 100 MG in 0.9 % Sodium Chloride Mini Bag 100 ML IVPB SCH ×2 (06:02→17:35)
[2021-03-19] MEDS: Cefepime HCl 2,000 MG in Water for inj. (sterile) 20 ML IVP SCH ×3 (06:02→22:37)
[2021-03-19] MEDS: Vancomycin 2,000 MG/520 ML IV.SOLN IVPB SCH ×2 (06:03→18:10)
[2021-03-19] MEDS: Potassium Chloride 40 MEQ/200 ML BAG IVPB PRN (06:08)
[2021-03-19] MEDS: predniSONE 10 MG TABLET PO SCH (08:12)
[2021-03-19] MEDS: Loratadine 10 MG TABLET PO SCH (08:12)
[2021-03-19] MEDS: Desitin (Zinc Oxide) 56 GM TUBE TP SCH ×2 (08:12→22:37)
[2021-03-19] MEDS: Docusate Oral Soln 100 MG/10 ML UDC GTUBE SCH ×2 (08:12→20:06)
[2021-03-19] MEDS: Pantoprazole 40 MG VIAL IVP SCH (08:12)
[2021-03-19] MEDS: Aspirin 81 MG TAB.CHEW GTUBE SCH (08:12)
[2021-03-19] MEDS: Chlorhexidine Rinse 15 ML MOUTHWASH MM SCH ×2 (08:12→20:06)
[2021-03-19] MEDS: Insulin DETEMIR 100 UNIT/ML X5UNITS SUBQ SCH ×2 (08:16→22:36)
[2021-03-19] MEDS ORDERED: *HR* Alteplase (Cathflo) 2 MG VIAL IVP ONE (12:30)
[2021-03-19] MEDS ORDERED: *HR* Metoprolol 5 MG/5 ML VIAL IVP ONE (13:35)
[2021-03-19] MEDS: Acetaminophen 325 MG TABLET PO PRN (16:39)
[2021-03-19 18:33] LABS: BUN/Creatinine Ratio 98 (6-26); Blood Urea Nitrogen 45 mg/dL (6-20); Calcium 8.6 mg/dL (8.6-10.3); Carbon Dioxide 44 mEq/L (23-29); Chloride 102 mEq/L (98-107); Glucose 221 mg/dL (70-105); Osmolality,Calculated 324 (280-300); Potassium 4.9 mEq/L (3.5-5.1); Sodium 148 mEq/L (136-145); eGFR For African Americans > 60 (> 60); eGFR For Non-African Americans > 60 (> 60)
[2021-03-19 18:49] LABS: Bacteria,Urine Few per hpf (None-Few); Bilirubin,Urine Negative (Negative); Blood,Urine Negative (Negative); Clarity,Urine Turbid (Clear); Color,Urine Yellow (Yellow); Glucose,Urine (UA) Normal (Normal); Granular Casts,Urine Many per lpf (None Seen); Ketones,Urine Negative (Negative); Leukocyte Esterase,Urine Negative (Negative); Mucus,Urine Few per lpf (None-Few); Nitrite,Urine Negative (Negative); Protein,Urine 70 mg/dL (Neg-Trace); RBC,Urine 15-30 per hpf (0-3); Renal Epithelial Cells,Urine Few per hpf (None-Few); Specific Gravity,Urine 1.023 (1.010-1.025); Transitional Epi Cells,Urine Few per hpf (None-Few); Urobilinogen,Urine Normal (Normal)
[2021-03-20] MEDS: Insulin LISPRO 300 UNITS/3 ML VIAL SUBQ SCH ×4 (00:04→11:18)
[2021-03-20] MEDS: Heparin 25,000UNIT/250ML 1/2NS 25,000 UNIT/250 ML IV.SOLN IVC SCH ×3 (00:06→04:22)
[2021-03-20] MEDS: Acetaminophen 325 MG TABLET PO PRN (01:56)
[2021-03-20] MEDS: Artificial Tears SOLN 15 ML BOTTLE BOTH EYES SCH ×3 (03:20→11:18)
[2021-03-20 03:31] LABS: Red Cell Distribution Width 15.9 % (11.5-14.5)
[2021-03-20 03:32] LABS: Basophils % 0.3 %; Hematocrit 31.8 % (35.3-44.9); Hemoglobin 8.4 g/dL (11.5-15.4); Immature Granulocytes % 3.4 % (0-4); Lymphocytes # 0.8 K/mcL (0.6-4.6); Lymphocytes % 6.5 %; Mean Corpuscular HGB Conc 26.4 g/dL (31.6-35.5); Mean Corpuscular Hemoglobin 26.6 pg (28.0-33.3); Mean Corpuscular Volume 100.6 fL (83.0-100.0); Mean Platelet Volume 10.3 fL (9.4-12.4); Monocytes # 0.9 K/mcL (0.0-1.3); Monocytes % 7.6 %; Neutrophils # 9.5 K/mcL (1.6-8.9); Nucleated Red Blood Cells 0.8 /100 WBC (0); Platelet Count 276 K/mcL (140-400); Red Blood Count 3.16 M/mcL (3.82-4.97); Segmented Neutrophils % 82.2 %; White Blood Count 11.6 K/mcL (4.3-11.1)
[2021-03-20] MEDS: Ipratropium 1 PUFF INHALER IH SCH ×4 (03:32→15:45)
[2021-03-20 03:34] LABS: VBG Ionized Calcium 1.21 mmol/L (1.15-1.35)
[2021-03-20 03:56] LABS: BUN/Creatinine Ratio 104 (6-26); Blood Urea Nitrogen 50 mg/dL (6-20); Calcium 8.6 mg/dL (8.6-10.3); Carbon Dioxide 45 mEq/L (23-29); Chloride 105 mEq/L (98-107); Glucose 198 mg/dL (70-105); Hypochromasia Present (Not Present); Magnesium 2.5 mg/dL (1.6-2.6); Osmolality,Calculated 329 (280-300); Phosphorous 2.7 mg/dL (2.7-4.5); Potassium 4.6 mEq/L (3.5-5.1); Sodium 150 mEq/L (136-145); eGFR For African Americans > 60 (> 60); eGFR For Non-African Americans > 60 (> 60)
[2021-03-20 03:57] LABS: Anisocytosis 1+ (Not Present); Basophilic Stippling 1+ (Not Present); Polychromasia 1+ (Not Present); Stomatocytes 2+ (Not Present)
[2021-03-20 03:58] LABS: Platelet Estimate Normal (Normal)
[2021-03-20] MEDS: Midazolam HCl 50 MG/100 ML IV.SOLN IVC SCH (04:25)
[2021-03-20] MEDS: Metoclopramide 10 MG/2 ML VIAL IVP SCH ×2 (04:26→11:18)
[2021-03-20 04:35] LABS: ABG Base Excess 15 mEq/L (-2 to 3); ABG HCO3 48 mEq/L (21-27); ABG Oxygen Saturation 84 % (95-98); ABG PCO2 134 mmHg (35-45); ABG PH 7.16 pH Units (7.32-7.45); ABG PO2 67 mmHg (85-104); ABG TCO2 > 50 mEq/L (20-26); Blood Gas Modality ASSIST CONTROL; Blood Gas VT 400 cc
[2021-03-20] MEDS: Doxycycline 100 MG in 0.9 % Sodium Chloride Mini Bag 100 ML IVPB SCH (05:56)
[2021-03-20] MEDS: Cefepime HCl 2,000 MG in Water for inj. (sterile) 20 ML IVP SCH (05:57)
[2021-03-20] MEDS: Vancomycin 2,000 MG/520 ML IV.SOLN IVPB SCH (06:38)
[2021-03-20] MEDS: Pantoprazole 40 MG VIAL IVP SCH (08:16)
[2021-03-20] MEDS: Chlorhexidine Rinse 15 ML MOUTHWASH MM SCH (08:16)
[2021-03-20] MEDS: Docusate Oral Soln 100 MG/10 ML UDC GTUBE SCH (08:17)
[2021-03-20] MEDS: Aspirin 81 MG TAB.CHEW GTUBE SCH (08:17)
[2021-03-20] MEDS: predniSONE 10 MG TABLET PO SCH (08:17)
[2021-03-20] MEDS: Loratadine 10 MG TABLET PO SCH (08:17)
[2021-03-20] MEDS: Desitin (Zinc Oxide) 56 GM TUBE TP SCH (08:18)
[2021-03-20] MEDS: Insulin DETEMIR 100 UNIT/ML X5UNITS SUBQ SCH (08:18)
[2021-03-20] MEDS ORDERED: *HR* LORazepam 2 MG/ML VIAL IVP ONE (12:24)
[2021-03-20] MEDS ORDERED: Glycopyrrolate 0.2 MG/ML VIAL IVP PRN (12:26)
[2021-03-20] MEDS ORDERED: *HR* LORazepam 2 MG/ML VIAL IVP SCH (12:30)
[2021-03-20] MEDS ORDERED: Scopolamine Patch 1.5 MG PATCH.TD72 TD SCH (12:30)
[2021-03-20 12:52] VITALS: BP 160/65
[2021-03-20 23:19] LABS: Acinetobacter baumannii by PCR Not Detected (Not Detect); Candida albicans by PCR Not Detected (Not Detect); Candida glabrata by PCR Not Detected (Not Detect); Candida krusei by PCR Not Detected (Not Detect); Candida parapsilosis by PCR Not Detected (Not Detect); Candida tropicalis by PCR Not Detected (Not Detect); Enterobacter cloacae Cmplx PCR Not Detected (Not Detect); Enterobacteriaceae by PCR Not Detected (Not Detect); Enterococcus by PCR Not Detected (Not Detect); Escherichia coli by PCR Not Detected (Not Detect); Klebsiella oxytoca by PCR Not Detected (Not Detect); Klebsiella pneumoniae by PCR Not Detected (Not Detect); Proteus by PCR Not Detected (Not Detect); Pseudomonas aeruginosa by PCR Not Detected (Not Detect); Serratia marcescens by PCR Not Detected (Not Detect); Staphylococcus aureus by PCR Not Detected (Not Detect); Staphylococcus by PCR DETECTED (Not Detect); Streptococcus agalactiae(B)PCR Not Detected (Not Detect); Streptococcus by PCR Not Detected (Not Detect); Streptococcus pneumoniae PCR Not Detected (Not Detect); Streptococcus pyogenes (A) PCR Not Detected (Not Detect); mecA Methicillin-Resist Gene DETECTED (Not Detect)
== END 2021-03-20 13:28 | disposition expired | DRG 207 ==
LOC: 2NENU 09:54 → SUATTDRO 09:54 → 2NNU 02-26 20:37 → 2NENU 03-05 22:47 → ICNU 03-09 03:01
PROVIDERS: ADMIT Family Medicine; ATTEND Family Medicine